=== PATIENT | female | born 1965 | race Hispanic/Latino ===

== ENCOUNTER 2018-08-03 20:49 | Emergency (ER) | payer SELFPAY ==
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
[2018-08-03 21:19] VITALS: BP 165/92; PULSE 69; RESP 22; TEMP 37; O2SAT 99; BMI 41.8
[2018-08-03] MEDS: ONDANSETRON 4 MG ODT PO (21:42)
[2018-08-03] MEDS: ACETAMINOPHEN 325 MG TABLET 650 MG PO (21:44)
[2018-08-03 22:10] VITALS: BP 144/74
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
[2018-08-03 22:18] VITALS: PULSE 74; RESP 18; TEMP 37.2; O2SAT 99
== END 2018-08-03 22:19 | disposition home or self-care (01) ==
PROVIDERS: Emergency Provider Emergency Medicine
DX: S13.9XXA Sprain of joints and ligaments of unspecified parts of neck, initial encounter (principal); V49.50XA Passenger injured in collision with unspecified motor vehicles in traffic accident, initial encounter
CPT/HCPCS: 71046; 99282; 99283

== ENCOUNTER 2018-11-15 14:28 | Emergency (ER) | payer OTHER, SELFPAY ==
[2018-11-15] VITALS (11 sets, daily range): BP systolic 114–150; BP diastolic 65–99; PULSE 72–91; RESP 14–24; TEMP 36.8; O2SAT 94–100; BMI 42.2
--- NOTE | 2018-11-15 15:09 | PC.NURSE ---
pt nepali, family at [employer] [facility], reports, right knee replacement a week ago, surg at [facility], pt developed left chest , radiating to the back, with shortness of breath, onset yesterday at 1pm. denies trauma,injuries. pain described as tightness and squeezing, denies fever,coughing. reports vomiting twice with brown secretions. also reports, no appetite.
--- NOTE | 2018-11-15 15:12 | ED.CHESTPAIN ---
HPI - Chest Pain <JULIA Abdul - Last Filed: 11/15/18 20:31> General Chief Complaint: Chest Pain Stated Complaint: Chest tightness, SOB Time Seen by Provider: 11/15/18 14:59 Source: patient Mode of arrival: wheelchair Limitations: language barrier History of Present Illness HPI narrative: 53-year-old female with recent history of meniscus clean of surgery to her right knee who is a nonsmoker here for complaint of chest pain radiating to the back pain and epigastric pain over the past couple of days. She denies any trauma to the area. She reports increased pain with movement of the torso and arms. She states she has had shortness of breath at times. She is able to speak full sentences. She denies any relievers of her symptoms other than being in certain positions. She reports that she has had periodic nausea and vomiting during the same timeframe. She reports that her vomit has had a bile like consistency to it. Last bowel movement was yesterday and was unremarkable. She denies any urinary symptoms. No fevers or chills. 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 Related Data Previous Rx's Medication Instructions Recorded lisinopril 10 mg PO QDAY #15 tab 07/26/17 ketorolac 10 mg PO Q6H PRN #14 tab 08/03/18 Allergies Allergy/AdvReac Type Severity Reaction Status Date / Time NARCOTICS AdvReac Unknown STATES CAN Uncoded 11/15/18 14:42 NOT TAKE Review of Systems <JULIA Abdul - Last Filed: 11/15/18 20:31> Constitutional Denies chills, Denies fatigue, Denies fever(s), Denies lethargy and Denies weakness Eyes Denies change in vision, Denies eye discharge, Denies irritation and Denies loss of vision ENT Ears, Nose, Mouth, and Throat: Denies change in voice, Denies neck pain and Denies sore throat Cardiovascular Reports chest pain, Denies dyspnea and Denies dyspnea on exertion Respiratory Denies cough, Denies dyspnea, Denies dyspnea on exertion and Denies wheezing Gastrointestinal Gastrointestinal: Reports abdominal pain, Denies change in bowel habits, Denies diarrhea, Denies nausea and Reports vomiting Genitourinary Denies hematuria, Denies flank pain, Denies urinary incontinence and Denies urinary urgency Musculoskeletal Denies neck pain Comments: Thoracic Back pain Integumentary/Breasts Denies pruritus, Denies erythema, Denies rash and Denies wounds Neurologic Denies confusion, Denies loss of vision and Denies weakness Psychiatric Denies anxiety, Denies confusion, Denies depression, Denies homicidal ideation and Denies suicidal ideation Endocrine Denies fatigue and Denies flushing Allergic/Immunologic Denies wheezing PFSH <JULIA Abdul - Last Filed: 11/15/18 20:31> Social History Smoking Status: Never smoker Social History Smoking Status: Never smoker Exam <JULIA Abdul - Last Filed: 11/15/18 20:31> Initial Vital Signs Initial Vital Signs: Vital Signs Temperature 98.3 F 11/15/18 14:33 Pulse Rate 84 11/15/18 14:33 Respiratory Rate 16 11/15/18 14:33 Blood Pressure 120/82 11/15/18 14:33 Pulse Oximetry 97 11/15/18 14:33 Const General: cooperative and well developed Nutritional Appearance: well nourished Orientation: alert, awake, oriented x3 and not confused [facility] Mouth: oral mucosae normal and moist mucous membranes Eyes Conjunctivae: conjunctivae normal Sclera: sclerae normal Pupils: PERRL EOM: EOM intact bilaterally Chest Chest: normal inspection of the chest Other: Tenderness on palpation to the sternal borders. No signs of trauma no ecchymosis. Resp Effort & Inspection: normal respiratory effort, able to speak in complete sentences, no respiratory distress and no use of accessory muscles Auscultation: clear to auscultation bilaterally, no rales, no rhonchi and no wheezes Cardio Rate: regular rate Rhythm: regular rhythm Heart Sounds: no click, no gallops, no murmurs and no rubs Pulses: normal peripheral pulses GI Inspection: non-distended Palpation: soft, no hepatosplenomegaly, No guarding, No pulsatile mass and tender (Tenderness to the epigastric region) Auscultation: normal bowel sounds Back/Spine/Pelvis Other: Tenderness on palpation to the paraspinals of the thoracic spine. Skin General: no rashes or lesions noted, No jaundice and No petechiae Neuro General: alert, oriented x3, gait normal and no focal motor deficits Speech: speech normal <Peter Stein DO - Last Filed: 11/16/18 00:22> Initial Vital Signs Initial Vital Signs: Vital Signs Temperature 98.3 F 11/15/18 14:33 Pulse Rate 84 11/15/18 14:33 Respiratory Rate 16 11/15/18 14:33 Blood Pressure 120/82 11/15/18 14:33 Pulse Oximetry 97 11/15/18 14:33 Scores <JULIA Abdul - Last Filed: 11/15/18 20:31> HEART Score Heart Score history: Slightly Suspicious Heart Score EKG: Normal Heart Score Age: 45-64 years old Heart Score risk factors: 1-2 risk factors Heart Score troponin: < or = to normal limit Heart Score Total: 2 PERC Score Age greater than or equal to 50 years: Yes Heart rate greater than or equal to 100 bpm: No Room Air O2 Sat less than 95%: No Unilateral leg swelling: No Recent trauma or surgery: Yes Hemoptysis: No Prior PE or DVT: No Hormone Use: No Total PERC Score: 2 Course <JULIA Abdul - Last Filed: 11/15/18 20:31> Orders Ordered: ED Orders 11/15/18 15:26 CT abdomen pelvis w con Stat CT angio chest PE protocol Stat 11/15/18 15:55 B Type Natriuretic Peptide Stat Complete Blood Count AUTO DIFF Stat Comprehensive Metabolic Panel Stat Lipase Stat Prothrombin Time INR Stat Troponin & CK Cardiac Panel Stat Discontinued Medications Heparin Sodium (Porcine) (Heparin) 5,000 unit IV NOW ONE Stop: 11/15/18 18:58 Last Admin: 11/15/18 19:34 Dose: Not Given Heparin Sodium (Porcine) (Heparin) 7,500 unit IV NOW ONE Stop: 11/15/18 19:31 Last Admin: 11/15/18 19:52 Dose: 7,500 unit Sodium Chloride (Normal Saline 0.9%) 1,000 mls @ 150 mls/hr IV CONT EVER Last Infusion: 11/15/18 18:45 Dose: 0 mls/hr Infusion: 11/15/18 16:09 Dose: 1,000 mls/hr Admin: 11/15/18 16:08 Dose: 150 mls/hr Heparin Sodium/Dextrose (Heparin Drip) 25,000 unit in 500 mls @ 22.752 mls/hr IV CONT EVER; Protocol Last Admin: 11/15/18 19:34 Dose: Not Given Heparin Sodium/Dextrose (Heparin Drip) 25,000 unit in 500 mls @ 24 mls/hr IV CONT EVER; Protocol Last Titration: 11/15/18 21:05 Dose: 0 units/hr, 0 mls/hr Admin: 11/15/18 19:52 Dose: 1,200 units/hr, 24 mls/hr Vital Signs - 8 hr 11/15/18 16:30 11/15/18 17:30 11/15/18 18:45 Pulse Rate 82 81 81 Respiratory Rate 21 22 19 Blood Pressure Blood Pressure [Right Arm] 129/74 130/65 129/87 Pulse Oximetry 94 98 97 11/15/18 20:01 11/15/18 20:10 11/15/18 20:41 Pulse Rate 91 H 85 Respiratory Rate 24 18 Blood Pressure Blood Pressure [Right Arm] 150/90 H 142/71 H Pulse Oximetry 97 100 11/15/18 21:19 Pulse Rate 78 Respiratory Rate 18 Blood Pressure 150/91 H Blood Pressure [Right Arm] Pulse Oximetry 98 <Peter Stein DO - Last Filed: 11/16/18 00:22> Orders Ordered: ED Orders 11/15/18 15:26 CT abdomen pelvis w con Stat CT angio chest PE protocol Stat 11/15/18 15:55 B Type Natriuretic Peptide Stat Complete Blood Count AUTO DIFF Stat Comprehensive Metabolic Panel Stat Lipase Stat Prothrombin Time INR Stat Troponin & CK Cardiac Panel Stat Discontinued Medications Heparin Sodium (Porcine) (Heparin) 5,000 unit IV NOW ONE Stop: 11/15/18 18:58 Last Admin: 11/15/18 19:34 Dose: Not Given Heparin Sodium (Porcine) (Heparin) 7,500 unit IV NOW ONE Stop: 11/15/18 19:31 Last Admin: 11/15/18 19:52 Dose: 7,500 unit Sodium Chloride (Normal Saline 0.9%) 1,000 mls @ 150 mls/hr IV CONT EVER Last Infusion: 11/15/18 18:45 Dose: 0 mls/hr Infusion: 11/15/18 16:09 Dose: 1,000 mls/hr Admin: 11/15/18 16:08 Dose: 150 mls/hr Heparin Sodium/Dextrose (Heparin Drip) 25,000 unit in 500 mls @ 22.752 mls/hr IV CONT EVER; Protocol Last Admin: 11/15/18 19:34 Dose: Not Given Heparin Sodium/Dextrose (Heparin Drip) 25,000 unit in 500 mls @ 24 mls/hr IV CONT EVER; Protocol Last Titration: 11/15/18 21:05 Dose: 0 units/hr, 0 mls/hr Admin: 11/15/18 19:52 Dose: 1,200 units/hr, 24 mls/hr Vital Signs - 8 hr 11/15/18 16:30 11/15/18 17:30 11/15/18 18:45 Pulse Rate 82 81 81 Respiratory Rate 21 22 19 Blood Pressure Blood Pressure [Right Arm] 129/74 130/65 129/87 Pulse Oximetry 94 98 97 11/15/18 20:01 11/15/18 20:10 11/15/18 20:41 Pulse Rate 91 H 85 Respiratory Rate 24 18 Blood Pressure Blood Pressure [Right Arm] 150/90 H 142/71 H Pulse Oximetry 97 100 11/15/18 21:19 Pulse Rate 78 Respiratory Rate 18 Blood Pressure 150/91 H Blood Pressure [Right Arm] Pulse Oximetry 98 MDM - Chest Pain <JULIA Abdul - Last Filed: 11/15/18 20:31> Lab Data Result diagrams: 11/15/18 15:55 11/15/18 15:55 Lab Results 11/15/18 11/15/18 11/15/18 Range/Units 15:55 15:55 15:55 WBC 8.3 (4.5-11.0) X10^3/uL RBC 4.61 (4.0-5.2) X10^6/uL Hgb 13.5 (12.0-16.0) g/dL Hct 40.5 (36-46) % MCV 88.0 (80-100) fL MCH 29.2 (26-34) PG MCHC 33.2 (30-36) % RDW 13.5 (11.6-14.8) % Plt Count 224 (150-400) X10^3/uL Neut % (Auto) 66.9 (50-75) % Lymph % (Auto) 23.1 L (25-40) % Sanders % (Auto) 6.7 (3-14) % Eos % (Auto) 2.6 (2-4) % Baso % (Auto) 0.7 (0-2) % Neut # (Auto) 5500 (8951-8138) /uL Lymph # (Auto) 1900 (6868-4914) /uL Sanders # (Auto) 600 (0-900) /uL Eos # (Auto) 200 (0-450) /uL Baso # (Auto) 100 (0-100) /uL PT (10.1-12.7) SECONDS INR (0.9-1.3) Sodium 138 (137-145) mmol/L Potassium 4.3 (3.4-5.1) mmol/L Chloride 103 (98-107) mmol/L Carbon Dioxide 26 (22-32) mmol/L BUN 11 (7-17) mg/dL Creatinine 0.60 (0.52-1.04) mg/dL Estimated GFR > 60.0 (>60) mL/min BUN/Creatinine Ratio 18.3 (6-22) Glucose 92 (70-100) mg/dL Calcium 9.2 (8.4-10.2) mg/dL Total Bilirubin 2.1 H (0.2-1.3) mg/dL AST 458 H (14-36) IU/L ALT 345 H (9-52) IU/L Alkaline Phosphatase 187 H (38-126) U/L Total Creatine Kinase 68 (30-135) U/L CK-MB (CK-2) TNP CK-MB (CK-2) Rel Index TNP Troponin I < 0.012 (0.01-0.034) ng/mL B-Natriuretic Peptide < 100 (<100) Total Protein 7.7 (6.3-8.2) g/dL Albumin 4.1 (3.5-5.0) g/dL Globulin 3.6 (1.7-4.1) g/dL Albumin/Globulin Ratio 1.1 (1.0-2.8) Lipase 93 (23-300) U/L 11/15/18 Range/Units 15:55 WBC (4.5-11.0) X10^3/uL RBC (4.0-5.2) X10^6/uL Hgb (12.0-16.0) g/dL Hct (36-46) % MCV (80-100) fL MCH (26-34) PG MCHC (30-36) % RDW (11.6-14.8) % Plt Count (150-400) X10^3/uL Neut % (Auto) (50-75) % Lymph % (Auto) (25-40) % Sanders % (Auto) (3-14) % Eos % (Auto) (2-4) % Baso % (Auto) (0-2) % Neut # (Auto) (9836-0815) /uL Lymph # (Auto) (7120-0830) /uL Sanders # (Auto) (0-900) /uL Eos # (Auto) (0-450) /uL Baso # (Auto) (0-100) /uL PT 11.0 (10.1-12.7) SECONDS INR 1.0 (0.9-1.3) Sodium (137-145) mmol/L Potassium (3.4-5.1) mmol/L Chloride (98-107) mmol/L Carbon Dioxide (22-32) mmol/L BUN (7-17) mg/dL Creatinine (0.52-1.04) mg/dL Estimated GFR (>60) mL/min BUN/Creatinine Ratio (6-22) Glucose (70-100) mg/dL Calcium (8.4-10.2) mg/dL Total Bilirubin (0.2-1.3) mg/dL AST (14-36) IU/L ALT (9-52) IU/L Alkaline Phosphatase (38-126) U/L Total Creatine Kinase (30-135) U/L CK-MB (CK-2) CK-MB (CK-2) Rel Index Troponin I (0.01-0.034) ng/mL B-Natriuretic Peptide (<100) Total Protein (6.3-8.2) g/dL Albumin (3.5-5.0) g/dL Globulin (1.7-4.1) g/dL Albumin/Globulin Ratio (1.0-2.8) Lipase (23-300) U/L Imaging Data CT scan - abdomen: Radiologist's impression: [address] [address] [address] Scan Report Signed Patient: Lilia Rehman#: [id number] : 1965Acct:[id number] Age/Sex: 53 / FDate of Service: 11/15/18 Loc: ED Accession Number: [id number] Procedure: CT abdomen pelvis w con Ordering Provider: Jama Clement PROCEDURE: CT ABDOMEN PELVIS W CON INDICATIONS: Epigastric/right upper quadrant pain TECHNIQUE: After the administration of intravenous contrast, 5 mm thick sections acquired from the diaphragm to the symphysis. 5 mm coronal and sagittal reformats were acquired. For radiation dose reduction, the following was used: automated exposure control, adjustment of mA and/or kV according to patient size. COMPARISON: [facility], CT, CT KUB, 10/04/2018, 19:10. [facility], CT, CT CERVICAL SPINE WITHOUT CONTRAST, 08/08/2018, 22:24. [facility], CT, CT HEAD WITHOUT CONTRAST, 04/08/2018, 17:17. [facility], CT, CT ANGIO CHEST PE, 05/28/2017, 20:35. FINDINGS: Image quality: Excellent. ABDOMEN: Lower chest: Please see separately dictated CT report performed concurrently for chest findings. Solid organs: Liver is normal in size and enhancement. Gallbladder demonstrate cholelithiasis. Common bile duct measures minimally dilated. Pancreas enhances normally. Spleen is normal in size and enhancement. No hydronephrosis. Bilateral left greater than right parapelvic cysts. Redemonstration of the previously noted left adrenal soft tissue mass containing heterogeneous fat in the posterior left upper quadrant of the abdomen measuring 9.1 x 5.4 x 8.3 cm, previously measuring 8.9 x 5.6 x 7.7 cm on comparison exam of 05/28/17 (within the limits of measurement error). Peritoneum and bowel: Bowel loops demonstrate normal wall thickness and caliber. No free fluid or air. There is scattered colonic diverticulosis without evidence of acute diverticulitis. Nodes and vessels: No retroperitoneal or mesenteric adenopathy by size criteria. Aorta and inferior vena cava are normal in size. Miscellaneous: 2.0 cm fat-containing umbilical hernia. PELVIS: Genitourinary: Bladder wall thickness is normal. Miscellaneous: No inguinal hernias or adenopathy. Bones: No suspicious bony lesions. No vertebral body compression fractures. Although there are changes of the thoracic spine with flowing anterior osteophytes consistent with diffuse idiopathic skeletal hyperostosis. IMPRESSION: 1. Cholelithiasis with minimal dilatation of the common bile duct. No convincing choledocholithiasis identified. No CT findings of acute cholecystitis. 2. 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 Recommend followup adrenal protocol CT of the abdomen and pelvis in 6 months to demonstrate stability. 3. Please see separately dictated PE CTA report performed concurrently for findings within the chest. Dictated by: Pola Monge M.D. on 11/15/2018 at 18:55 Approved by: Pola Monge M.D. on 11/15/2018 at 19:06 CT scan - chest: Radiologist's impression: [place] [address] CT Scan Report Signed Patient: Lilia Rehman#: [id number] : 1965Acct:[id number] Age/Sex: 53 / FDate of Service: 11/15/18 Loc: ED Accession Number: [id number] Procedure: CT abdomen pelvis w con Ordering Provider: Jama Clement PROCEDURE: CT ABDOMEN PELVIS W CON INDICATIONS: Epigastric/right upper quadrant pain TECHNIQUE: After the administration of intravenous contrast, 5 mm thick sections acquired from the diaphragm to the symphysis. 5 mm coronal and sagittal reformats were acquired. For radiation dose reduction, the following was used: automated exposure control, adjustment of mA and/or kV according to patient size. COMPARISON: [facility], CT, CT KUB, 10/04/2018, 19:10. [facility], CT, CT CERVICAL SPINE WITHOUT CONTRAST, 08/08/2018, 22:24. [facility], CT, CT HEAD WITHOUT CONTRAST, 04/08/2018, 17:17. [facility], CT, CT ANGIO CHEST PE, 05/28/2017, 20:35. FINDINGS: Image quality: Excellent. ABDOMEN: Lower chest: Please see separately dictated CT report performed concurrently for chest findings. Solid organs: Liver is normal in size and enhancement. Gallbladder demonstrate cholelithiasis. Common bile duct measures minimally dilated. Pancreas enhances normally. Spleen is normal in size and enhancement. No hydronephrosis. Bilateral left greater than right parapelvic cysts. Redemonstration of the previously noted left adrenal soft tissue mass containing heterogeneous fat in the posterior left upper quadrant of the abdomen measuring 9.1 x 5.4 x 8.3 cm, previously measuring 8.9 x 5.6 x 7.7 cm on comparison exam of 05/28/17 (within the limits of measurement error). Peritoneum and bowel: Bowel loops demonstrate normal wall thickness and caliber. No free fluid or air. There is scattered colonic diverticulosis without evidence of acute diverticulitis. Nodes and vessels: No retroperitoneal or mesenteric adenopathy by size criteria. Aorta and inferior vena cava are normal in size. Miscellaneous: 2.0 cm fat-containing umbilical hernia. PELVIS: Genitourinary: Bladder wall thickness is normal. Miscellaneous: No inguinal hernias or adenopathy. Bones: No suspicious bony lesions. No vertebral body compression fractures. Although there are changes of the thoracic spine with flowing anterior osteophytes consistent with diffuse idiopathic skeletal hyperostosis. IMPRESSION: 1. Cholelithiasis with minimal dilatation of the common bile duct. No convincing choledocholithiasis identified. No CT findings of acute cholecystitis. 2. 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 Recommend followup adrenal protocol CT of the abdomen and pelvis in 6 months to demonstrate stability. 3. Please see separately dictated PE CTA report performed concurrently for findings within the chest. Dictated by: Pola Monge M.D. on 11/15/2018 at 18:55 Approved by: Pola Monge M.D. on 11/15/2018 at 19:06 ECG Data Interpretation: EKG shows normal sinus rhythm with no ST elevation or depression. No ectopy. Ventricular rate of 79. Pr interval 147. QRS duration 91. QTC of 435. S1 q3 T3 negative MDM Narrative Medical decision making narrative: CT scan of the chest was obtained and shows a pulmonary embolus to the right main pulmonary artery extending into the lobar arteries of the anterior right upper lobe right middle lobe and right lower lobe. Cardiac enzymes were obtained were upper were normal. BMP was normal. was obtained and was unremarkable. Chem panel was obtained elevated AST ALT and alk phos along with elevated total bili of 2.1. INR was obtained was unremarkable. CT of the abdomen was also obtained and shows cholelithiasis no cholecystitis and no dilation of the common bile duct. Unknown etiology at this point why she has elevated liver enzymes and a elevated bilirubin. Recommend further evaluation after stabilization of pulmonary embolus. She is transferred to [facility]. Discussed case with hospitalist Dr. Pacheco who accepted patient. Patient's vital signs were stable in the emergency room with the exception of pulse ox which lowered to around 80% and she was given 3 L nasal cannula which helped bring back to normal. Patient is transferred to the [facility] via ALS. Heparin bolus and heparin starting drip was initiated here in the emergency room. <Peter Stein, DO - Last Filed: 11/16/18 00:22> Lab Data Lab Results 11/15/18 11/15/18 11/15/18 Range/Units 15:55 15:55 15:55 WBC 8.3 (4.5-11.0) X10^3/uL RBC 4.61 (4.0-5.2) X10^6/uL Hgb 13.5 (12.0-16.0) g/dL Hct 40.5 (36-46) % MCV 88.0 (80-100) fL MCH 29.2 (26-34) PG MCHC 33.2 (30-36) % RDW 13.5 (11.6-14.8) % Plt Count 224 (150-400) X10^3/uL Neut % (Auto) 66.9 (50-75) % Lymph % (Auto) 23.1 L (25-40) % Sanders % (Auto) 6.7 (3-14) % Eos % (Auto) 2.6 (2-4) % Baso % (Auto) 0.7 (0-2) % Neut # (Auto) 5500 (5999-9105) /uL Lymph # (Auto) 1900 (9222-2079) /uL Sanders # (Auto) 600 (0-900) /uL Eos # (Auto) 200 (0-450) /uL Baso # (Auto) 100 (0-100) /uL PT (10.1-12.7) SECONDS INR (0.9-1.3) Sodium 138 (137-145) mmol/L Potassium 4.3 (3.4-5.1) mmol/L Chloride 103 (98-107) mmol/L Carbon Dioxide 26 (22-32) mmol/L BUN 11 (7-17) mg/dL Creatinine 0.60 (0.52-1.04) mg/dL Estimated GFR > 60.0 (>60) mL/min BUN/Creatinine Ratio 18.3 (6-22) Glucose 92 (70-100) mg/dL Calcium 9.2 (8.4-10.2) mg/dL Total Bilirubin 2.1 H (0.2-1.3) mg/dL AST 458 H (14-36) IU/L ALT 345 H (9-52) IU/L Alkaline Phosphatase 187 H (38-126) U/L Total Creatine Kinase 68 (30-135) U/L CK-MB (CK-2) TNP CK-MB (CK-2) Rel Index TNP Troponin I < 0.012 (0.01-0.034) ng/mL B-Natriuretic Peptide < 100 (<100) Total Protein 7.7 (6.3-8.2) g/dL Albumin 4.1 (3.5-5.0) g/dL Globulin 3.6 (1.7-4.1) g/dL Albumin/Globulin Ratio 1.1 (1.0-2.8) Lipase 93 (23-300) U/L 11/15/18 Range/Units 15:55 WBC (4.5-11.0) X10^3/uL RBC (4.0-5.2) X10^6/uL Hgb (12.0-16.0) g/dL Hct (36-46) % MCV (80-100) fL MCH (26-34) PG MCHC (30-36) % RDW (11.6-14.8) % Plt Count (150-400) X10^3/uL Neut % (Auto) (50-75) % Lymph % (Auto) (25-40) % Sanders % (Auto) (3-14) % Eos % (Auto) (2-4) % Baso % (Auto) (0-2) % Neut # (Auto) (8868-2204) /uL Lymph # (Auto) (1108-7567) /uL Sanders # (Auto) (0-900) /uL Eos # (Auto) (0-450) /uL Baso # (Auto) (0-100) /uL PT 11.0 (10.1-12.7) SECONDS INR 1.0 (0.9-1.3) Sodium (137-145) mmol/L Potassium (3.4-5.1) mmol/L Chloride (98-107) mmol/L Carbon Dioxide (22-32) mmol/L BUN (7-17) mg/dL Creatinine (0.52-1.04) mg/dL Estimated GFR (>60) mL/min BUN/Creatinine Ratio (6-22) Glucose (70-100) mg/dL Calcium (8.4-10.2) mg/dL Total Bilirubin (0.2-1.3) mg/dL AST (14-36) IU/L ALT (9-52) IU/L Alkaline Phosphatase (38-126) U/L Total Creatine Kinase (30-135) U/L CK-MB (CK-2) CK-MB (CK-2) Rel Index Troponin I (0.01-0.034) ng/mL B-Natriuretic Peptide (<100) Total Protein (6.3-8.2) g/dL Albumin (3.5-5.0) g/dL Globulin (1.7-4.1) g/dL Albumin/Globulin Ratio (1.0-2.8) Lipase (23-300) U/L Discharge Plan Departure Patient Disposition: [facility] Clinical Impression: Pulmonary embolism Qualifiers: Pulmonary embolism type: unspecified Chronicity: acute Acute cor pulmonale presence: without acute cor pulmonale Qualified Code(s): I26.99 - Other pulmonary embolism without acute cor pulmonale Discharge Date/Time: 11/15/18 21:10 Interventions: ED Discharge Assessment Last Done: 11/15/18 21:19 Prescriptions: No Action lisinopril 10 MG tablet 10 mg PO QDAY Qty: 15 RF: 0 ketorolac 10 mg tablet 10 mg PO Q6H PRN (Reason: pain) Qty: 14 RF: 0 <Peter Stein DO - Last Filed: 11/16/18 00:22> Cosign ED Attending Cosignature Attestation: I was immediately available in the department for consultation. Documentation has been reviewed. I agree with assessment and plan.
--- NOTE | 2018-11-15 15:26 | DI.CT.S_ITS ---
PROCEDURE: CT ANGIO CHEST PE PROTOCOL INDICATIONS: Chest pain radiating to back TECHNIQUE: After the administration of intravenous contrast, 2 mm thick sections acquired from the pulmonary apices to the posterior costophrenic angles. 3-dimensional maximum intensity projection (MIP) coronal and sagittal reformats were then acquired through the thorax. For radiation dose reduction, the following was used: automated exposure control, adjustment of mA and/or kV according to patient size. COMPARISON: [facility], CT, CT KUB, 10/04/2018, 19:10. [facility], CT, CT CERVICAL SPINE WITHOUT CONTRAST, 08/08/2018, 22:24. [facility], CT, CT HEAD WITHOUT CONTRAST, 04/08/2018, 17:17. [facility], CT, CT ANGIO CHEST PE, 05/28/2017, 20:35. FINDINGS: Image quality: Excellent. Pulmonary arteries: There are filling defects consistent with pulmonary emboli in the right main pulmonary artery extending into the lobar arteries of the anterior right upper lobe, right middle lobe, and right lower lobe. There is no significant dilatation of the main pulmonary arteries or right ventricular outflow tract. There is no right to left shift of the ventricular septum. Smaller segmental emboli are noted distal to these emboli. Lungs and pleura: Lungs are clear. No pleural effusions or pneumothorax. Central and peripheral airways are patent. Mediastinum: Heart size is normal, without pericardial effusion. No mediastinal or hilar adenopathy. Thoracic aorta is normal in caliber and enhancement. Esophagus is normal in caliber, without hiatal hernia. Bones and chest wall: Moderate multilevel degenerative changes of the thoracic spine. Multilevel flowing anterior osteophytes suggestive of diffuse idiopathic skeletal hyperostosis. Abdomen: Please see separately dictated report for separately performed CT of the abdomen performed concurrently. IMPRESSION: 1. Pulmonary emboli extending from the right main pulmonary artery into the lobar arteries of the right upper, right middle, and right lower lobes. Smaller segmental emboli are noted distally. 2. Please see separately dictated report for separately performed CT of the abdomen performed concurrently for abdominal findings. Findings discussed with the referring provider JULIA Clement by telephone by Dr. Monge at approximately 6:55 PM on 11/15/2018. Dictated by: Pola Monge M.D. on 11/15/2018 at 18:44 Approved by: Pola Monge M.D. on 11/15/2018 at 18:55
--- NOTE | 2018-11-15 15:26 | DI.CT.S_ITS ---
PROCEDURE: CT ABDOMEN PELVIS W CON INDICATIONS: Epigastric/right upper quadrant pain TECHNIQUE: After the administration of intravenous contrast, 5 mm thick sections acquired from the diaphragm to the symphysis. 5 mm coronal and sagittal reformats were acquired. For radiation dose reduction, the following was used: automated exposure control, adjustment of mA and/or kV according to patient size. COMPARISON: [facility], CT, CT KUB, 10/04/2018, 19:10. [facility], CT, CT CERVICAL SPINE WITHOUT CONTRAST, 08/08/2018, 22:24. [facility], CT, CT HEAD WITHOUT CONTRAST, 04/08/2018, 17:17. [facility], CT, CT ANGIO CHEST PE, 05/28/2017, 20:35. FINDINGS: Image quality: Excellent. ABDOMEN: Lower chest: Please see separately dictated CT report performed concurrently for chest findings. Solid organs: Liver is normal in size and enhancement. Gallbladder demonstrate cholelithiasis. Common bile duct measures minimally dilated. Pancreas enhances normally. Spleen is normal in size and enhancement. No hydronephrosis. Bilateral left greater than right parapelvic cysts. Redemonstration of the previously noted left adrenal soft tissue mass containing heterogeneous fat in the posterior left upper quadrant of the abdomen measuring 9.1 x 5.4 x 8.3 cm, previously measuring 8.9 x 5.6 x 7.7 cm on comparison exam of 05/28/17 (within the limits of measurement error). Peritoneum and bowel: Bowel loops demonstrate normal wall thickness and caliber. No free fluid or air. There is scattered colonic diverticulosis without evidence of acute diverticulitis. Nodes and vessels: No retroperitoneal or mesenteric adenopathy by size criteria. Aorta and inferior vena cava are normal in size. Miscellaneous: 2.0 cm fat-containing umbilical hernia. PELVIS: Genitourinary: Bladder wall thickness is normal. Miscellaneous: No inguinal hernias or adenopathy. Bones: No suspicious bony lesions. No vertebral body compression fractures. Although there are changes of the thoracic spine with flowing anterior osteophytes consistent with diffuse idiopathic skeletal hyperostosis. IMPRESSION: 1. Cholelithiasis with minimal dilatation of the common bile duct. No convincing choledocholithiasis identified. No CT findings of acute cholecystitis. 2. 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 Recommend followup adrenal protocol CT of the abdomen and pelvis in 6 months to demonstrate stability. 3. Please see separately dictated PE CTA report performed concurrently for findings within the chest. Dictated by: Pola Monge M.D. on 11/15/2018 at 18:55 Approved by: Pola Monge M.D. on 11/15/2018 at 19:06
[2018-11-15] MEDS: SODIUM CHLORIDE 0.9% 1,000 ML 150 ML IV (16:08)
[2018-11-15 16:12] LABS: Add Manual Diff / Slide Review NO; Basophils Absolute Auto 100 /uL (0-100); Basophils Percent Auto 0.7 % (0-2); Eosinophils Absolute Auto 200 /uL (0-450); Eosinophils Percent Auto 2.6 % (2-4); Hematocrit 40.5 % (36-46); Hemoglobin 13.5 g/dL (12.0-16.0); Lymphocytes Absolute Auto 1900 /uL (1100-4500); Lymphocytes Percent Auto 23.1 % (25-40); Mean Corpuscular HGB Conc 33.2 % (30-36); Mean Corpuscular Hemoglobin 29.2 PG (26-34); Monocytes Absolute Auto 600 /uL (0-900); Monocytes Percent Auto 6.7 % (3-14); Neutrophils Absolute Auto 5500 /uL (1500-7000); Neutrophils Percent Auto 66.9 % (50-75); Platelet Count 224 X10^3/uL (150-400); Red Blood Cell Count 4.61 X10^6/uL (4.0-5.2); Red Cell Distribution Width 13.5 % (11.6-14.8); White Blood Cell Count 8.3 X10^3/uL (4.5-11.0)
[2018-11-15 16:29] LABS: Alanine Aminotransferase 345 IU/L (9-52); Albumin 4.1 g/dL (3.5-5.0); Albumin Globulin Ratio 1.1 (1.0-2.8); Alkaline Phosphatase 187 U/L (38-126); Aspartate Aminotransferase 458 IU/L (14-36); BUN Creatinine Ratio 18.3 (6-22); Bilirubin Total 2.1 mg/dL (0.2-1.3); Blood Urea Nitrogen 11 mg/dL (7-17); Calcium 9.2 mg/dL (8.4-10.2); Carbon Dioxide 26 mmol/L (22-32); Chloride 103 mmol/L (98-107); Creatine Kinase 68 U/L (30-135); Estimated Glomerular Filt Rate > 60.0 mL/min (>60); Globulin 3.6 g/dL (1.7-4.1); Glucose 92 mg/dL (70-100); HEMOLYSIS < 15 (0-50); Lipase 93 U/L (23-300); Potassium 4.3 mmol/L (3.4-5.1); Sodium 138 mmol/L (137-145); Total Protein 7.7 g/dL (6.3-8.2)
[2018-11-15 16:39] LABS: Troponin I < 0.012 ng/mL (0.01-0.034)
--- NOTE | 2018-11-15 17:19 | PC.NURSE ---
right knee dressing sliding down, right knee with 2 incision site with drain intact, clean dry, no redness/warmth/swelling/bruising noted. new 4x4 with abdominal pads applied along with angy wrap. post application, +distal cms. tolerated procedure well. lower extremities levated with pillow, warm blanket provided, family at bs.
[2018-11-15 19:25] LABS: B Type Natriuretic Peptide < 100 (<100)
[2018-11-15] MEDS: HEPARIN DRIP 25,000 UNIT/500 ML IV.SOLN 24 UNIT IV (19:52)
[2018-11-15] MEDS: HEPARIN 5,000 UNIT/ML VIAL 7500 UNIT IV (19:52)
--- NOTE | 2018-11-15 19:57 | PC.NURSE ---
heparin doseages verified with kelsi gill per policy in policy tech. IV pump rate and bolus verified with jyotsna love
--- NOTE | 2018-11-15 19:59 | PC.NURSE ---
second line started due to heparin infustion in left forearm iv
--- NOTE | 2018-11-15 20:00 | PC.NURSE ---
pt placed on nasal cannula at 3L to maintain sats at or above 96. Provider notified and went directly to room.
--- NOTE | 2018-11-15 21:19 | PC.NURSE ---
heparin to infuse in transport
== END 2018-11-15 21:10 | disposition short-term general hospital (02) ==
PROVIDERS: Emergency Medicine; Emergency Provider Nurse Practitioner Family
DX: I26.99 Other pulmonary embolism without acute cor pulmonale (principal)
CPT/HCPCS: 36591; 71275; 74177; 80053; 82550; 83690; 83880; 84484; 85025; 85610; 93005; 93010; 96361; 96365; 99285; J1644; Q9967

== ENCOUNTER 2018-11-20 21:27 | Emergency (ER) | payer OTHER, SELFPAY ==
[2018-11-20 21:45] VITALS: BP 147/84; PULSE 71; RESP 18; TEMP 36.6; O2SAT 97
--- NOTE | 2018-11-20 22:04 | DI.RAD.S_ITS ---
PROCEDURE: XR CHEST 1V INDICATIONS: dyspnea TECHNIQUE: One view of the chest was acquired. COMPARISON: [facility], CR, XR CHEST 2V, 08/03/2018, 21:27. FINDINGS: Surgical changes and devices: None. Lungs and pleura: Slightly increased pulmonary vascularity. Lungs are otherwise clear. No pleural effusions or pneumothorax. Mediastinum: Mediastinal contours appear normal. Heart size is mildly increased. Bones and chest wall: No suspicious bony lesions. Overlying soft tissues appear unremarkable. IMPRESSION: Mild cardiomegaly and slightly increased pulmonary vascularity suggesting mild pulmonary congestion. No overt pulmonary edema. Dictated by: Dhruv Reeder M.D. on 11/21/2018 at 8:32 Approved by: Dhruv Reeder M.D. on 11/21/2018 at 8:34
[2018-11-20 22:10] LABS: Add Manual Diff / Slide Review NO; Basophils Absolute Auto 100 /uL (0-100); Basophils Percent Auto 0.6 % (0-2); Eosinophils Absolute Auto 300 /uL (0-450); Eosinophils Percent Auto 2.9 % (2-4); Hematocrit 39.4 % (36-46); Hemoglobin 13.3 g/dL (12.0-16.0); Lymphocytes Absolute Auto 2500 /uL (1100-4500); Lymphocytes Percent Auto 27.2 % (25-40); Mean Corpuscular HGB Conc 33.6 % (30-36); Mean Corpuscular Hemoglobin 29.4 PG (26-34); Mean Corpuscular Volume 87.5 fL (80-100); Monocytes Absolute Auto 400 /uL (0-900); Monocytes Percent Auto 4.5 % (3-14); Neutrophils Absolute Auto 5900 /uL (1500-7000); Neutrophils Percent Auto 64.8 % (50-75); Platelet Count 235 X10^3/uL (150-400); Red Blood Cell Count 4.51 X10^6/uL (4.0-5.2); Red Cell Distribution Width 13.3 % (11.6-14.8); White Blood Cell Count 9.1 X10^3/uL (4.5-11.0)
[2018-11-20] MEDS: KETOROLAC 60 MG/2 ML VIAL 15 MG IV (22:13)
[2018-11-20] MEDS: LORazepam 2 MG/ML SYRINGE 1 MG IV (22:14)
[2018-11-20] MEDS: SODIUM CHLORIDE 0.9% 1,000 ML 1000 ML IV (22:15)
[2018-11-20 22:18] LABS: INR 1.2 (0.9-1.3); Prothrombin Time 14.1 SECONDS (10.1-12.7)
[2018-11-20 22:24] LABS: Alanine Aminotransferase 96 IU/L (9-52); Albumin 4.2 g/dL (3.5-5.0); Albumin Globulin Ratio 1.2 (1.0-2.8); Alkaline Phosphatase 114 U/L (38-126); Aspartate Aminotransferase 43 IU/L (14-36); Bilirubin Total 0.5 mg/dL (0.2-1.3); Blood Urea Nitrogen 14 mg/dL (7-17); Calcium 9.4 mg/dL (8.4-10.2); Carbon Dioxide 27 mmol/L (22-32); Chloride 103 mmol/L (98-107); Estimated Glomerular Filt Rate > 60.0 mL/min (>60); Globulin 3.5 g/dL (1.7-4.1); Glucose 118 mg/dL (70-100); HEMOLYSIS 20 (0-50); Potassium 3.8 mmol/L (3.4-5.1); Sodium 139 mmol/L (137-145); Total Protein 7.7 g/dL (6.3-8.2)
--- NOTE | 2018-11-20 22:34 | ED_ITS ---
HPI - SOB/Dyspnea General Chief Complaint: Shortness of Breath/Dyspnea Stated Complaint: PAIN, HX RECENT BLOOD CLOTS Time Seen by Provider: 11/20/18 21:52 Source: patient and family Mode of arrival: ambulatory Limitations: no limitations History of Present Illness Patient comes to the emergency department with her family complaining of pain with deep breaths, anxiety and shortness of breath. Patient was diagnosed with pulmonary emboli about 5 days ago, and was admitted at [facility] in [place] for several days. Patient has been on oral anticoagulants since. She has not had any fevers, and denies lightheadedness or dizziness. No cough. She states that she is having pain in her back that is the same as the pain in the side and front. Pain is mainly located on the left. Patient has no cardiac history. Family states the patient is not on Coumadin, but they think she is on Pradaxa. Related Data Previous Rx's Medication Instructions Recorded lisinopril 10 mg PO QDAY #15 tab 07/26/17 ketorolac 10 mg PO Q6H PRN #14 tab 08/03/18 Allergies Allergy/AdvReac Type Severity Reaction Status Date / Time narcotic Allergy Uncoded 11/20/18 21:52 Review of Systems Constitutional Denies chills, Denies fever(s), Denies lethargy and Denies weakness Eyes Denies change in vision, Denies eye discharge, Denies irritation and Denies loss of vision ENT Ears, Nose, Mouth, and Throat: Denies change in voice, Denies neck pain and Denies sore throat Cardiovascular Reports chest pain, Denies irregular heart rhythm, Denies lightheadedness, Denies palpitations, Reports dyspnea ( Patient states mainly because it hurts to take a deep breath.) and Denies orthopnea Respiratory Denies cough, Reports dyspnea ( Patient states mainly because it hurts to take a deep breath.) and Denies wheezing Gastrointestinal Gastrointestinal: Denies abdominal pain, Denies change in bowel habits, Denies diarrhea, Denies nausea and Denies vomiting Genitourinary Denies hematuria, Denies flank pain, Denies urinary incontinence and Denies urinary urgency Musculoskeletal Denies neck pain Integumentary/Breasts Denies pruritus, Denies erythema, Denies rash and Denies wounds Neurologic Denies confusion, Denies loss of vision and Denies weakness Psychiatric Denies anxiety, Denies confusion, Denies depression, Denies homicidal ideation and Denies suicidal ideation Endocrine Denies palpitations Hematologic/Lymphatic Denies easy bruising Allergic/Immunologic Denies wheezing [facility] Medical History Pulmonary embolism (Acute) Anxiety (Acute) Acute labyrinthitis (Acute) Right sided sciatica (Acute) Surgical History No pertinent past surgical history (Acute) Social History Smoking Status: Never smoker Social History Smoking Status: Never smoker Exam Initial Vital Signs Initial Vital Signs: Vital Signs Temperature 97.8 F 11/20/18 21:45 Pulse Rate 71 11/20/18 21:45 Respiratory Rate 18 11/20/18 21:45 Blood Pressure 147/84 H 11/20/18 21:45 Pulse Oximetry 97 11/20/18 21:45 Const General: cooperative, well developed and anxious Nutritional Appearance: well nourished Orientation: alert, awake, oriented x3 and not confused HENMT Head: normocephalic and atraumatic Ears: external ears normal and TM's normal bilaterally Nose: external nose normal and No nasal discharge Face and sinus: sinuses nontender, face symmetric, no sinus tenderness and No dry mucous membranes Mouth: oral mucosae normal and moist mucous membranes Teeth and gingiva: dentition normal Throat: tonsils normal and uvula midline Eyes General: appearance normal, both eyes and all related structures Eyelids: eyelids normal Conjunctivae: conjunctivae normal Sclera: sclerae normal Pupils: PERRL EOM: EOM intact bilaterally Neck Neck: normal visual inspection, trachea midline, No lymphadenopathy, No midline deformity and No JVD Lymphatic: No lymphedema Chest Chest: normal inspection of the chest Other: Patient has tenderness over her left anterior and lateral chest wall. Resp Effort & Inspection: normal respiratory effort, able to speak in complete sentences, no respiratory distress and no use of accessory muscles Auscultation: clear to auscultation bilaterally, no rales, no rhonchi and no wheezes Cardio Rate: regular rate Rhythm: regular rhythm Heart Sounds: no click, no gallops, no murmurs and no rubs Pulses: normal peripheral pulses Other: No tachycardia. GI Inspection: non-distended Palpation: soft, no hepatosplenomegaly, No guarding, No pulsatile mass and No tender Auscultation: normal bowel sounds Back/Spine/Pelvis Back: No CVA tenderness Cervical Spine: cervical ROM normal and No pain with cervical ROM Thoracic/Lumbar Spine: thoracic and lumbar spine normal to inspection Skin General: no rashes or lesions noted, No jaundice and No petechiae Neuro General: alert, oriented x3, gait normal and no focal motor deficits Speech: speech normal Extrem General: full ROM, no clubbing, cyanosis or edema, no pedal edema and no calf tenderness Psych Appearance: well kempt Mental Status: mental status grossly normal Attitude: cooperative Thought Content: normal and suicidality Judgment: judgment good Course Course Narrative: The patient appeared anxious, but she had normal heart rate, blood pressure, and oxygen saturation. Additionally, she had tenderness over her left lateral and anterior chest wall, as well as over her left trapezius distribution. Furthermore, she had complained of worsening pain in those areas with deep breaths, and I suspected most likely a chest wall source of her pain as opposed to an increase in her pulmonary embolus burden. She was treated symptomatically and felt much better. She was on appropriate therapy for her emboli, and as such, I did not feel that repeat CT was indicated. Patient's labs and chest x-ray were unremarkable. Patient was found to be feeling much better on re-evaluation, and I felt she was stable for discharge home. Orders Ordered: Discontinued Medications Heparin Sodium (Porcine) (Heparin) 7,600 unit 80 unit/kg (7600 unit) IV NOW ONE Stop: 11/20/18 22:02 Last Admin: 11/20/18 22:53 Dose: Not Given Heparin Sodium/Dextrose (Heparin Drip) 25,000 unit in 500 mls @ 34.128 mls/hr IV CONT EVER; Protocol Sodium Chloride (Normal Saline 0.9%) 1,000 mls @ 1,000 mls/hr IV BOLUS ONE Stop: 11/20/18 23:02 Last Infusion: 11/20/18 23:50 Dose: 0 mls/hr Admin: 11/20/18 22:15 Dose: 1,000 mls/hr Ketorolac Tromethamine (Toradol) 15 mg IV NOW ONE Stop: 11/20/18 22:04 Last Admin: 11/20/18 22:13 Dose: 15 mg Lorazepam (Ativan) 1 mg IV NOW ONE Stop: 11/20/18 22:04 Last Admin: 11/20/18 22:14 Dose: 1 mg Vital Signs - 8 hr 11/20/18 21:45 11/20/18 22:45 11/20/18 22:48 Temperature 97.8 F 97.8 F Pulse Rate 71 71 74 Respiratory Rate 18 18 22 Blood Pressure 147/84 H 147/84 H Blood Pressure [Right Arm] 126/67 Pulse Oximetry 97 97 99 11/20/18 23:30 11/21/18 00:00 11/21/18 00:30 Temperature Pulse Rate 77 78 77 Respiratory Rate 20 25 H 17 Blood Pressure Blood Pressure [Right Arm] 134/69 135/79 132/81 Pulse Oximetry 99 96 98 MDM - SOB/Dyspnea Medical Records Attestation: I reviewed the patient's medical records. Lab Data Attestation: I reviewed the patient's lab results. Result diagrams: 11/20/18 21:50 11/20/18 21:50 Lab Results 11/20/18 11/20/18 11/20/18 Range/Units 21:50 21:50 21:50 WBC 9.1 (4.5-11.0) X10^3/uL RBC 4.51 (4.0-5.2) X10^6/uL Hgb 13.3 (12.0-16.0) g/dL Hct 39.4 (36-46) % MCV 87.5 (80-100) fL MCH 29.4 (26-34) PG MCHC 33.6 (30-36) % RDW 13.3 (11.6-14.8) % Plt Count 235 (150-400) X10^3/uL Neut % (Auto) 64.8 (50-75) % Lymph % (Auto) 27.2 (25-40) % Hardin % (Auto) 4.5 (3-14) % Eos % (Auto) 2.9 (2-4) % Baso % (Auto) 0.6 (0-2) % Neut # (Auto) 5900 (3465-0721) /uL Lymph # (Auto) 2500 (3654-4331) /uL Hardin # (Auto) 400 (0-900) /uL Eos # (Auto) 300 (0-450) /uL Baso # (Auto) 100 (0-100) /uL PT 14.1 H (10.1-12.7) SECONDS INR 1.2 (0.9-1.3) Sodium 139 (137-145) mmol/L Potassium 3.8 (3.4-5.1) mmol/L Chloride 103 (98-107) mmol/L Carbon Dioxide 27 (22-32) mmol/L BUN 14 (7-17) mg/dL Creatinine 0.50 L (0.52-1.04) mg/dL Estimated GFR > 60.0 (>60) mL/min BUN/Creatinine Ratio 28.0 H (6-22) Glucose 118 H (70-100) mg/dL Calcium 9.4 (8.4-10.2) mg/dL Total Bilirubin 0.5 (0.2-1.3) mg/dL AST 43 H (14-36) IU/L ALT 96 H (9-52) IU/L Alkaline Phosphatase 114 D (38-126) U/L Total Protein 7.7 (6.3-8.2) g/dL Albumin 4.2 (3.5-5.0) g/dL Globulin 3.5 (1.7-4.1) g/dL Albumin/Globulin Ratio 1.2 (1.0-2.8) Imaging Data Chest x-ray: Attestation: I personally reviewed and interpreted this imaging study as follows: ( unremarkable) Radiologist's impression: FINDINGS: Surgical changes and devices: None. Lungs and pleura: Slightly increased pulmonary vascularity. Lungs are otherwise clear. No pleural effusions or pneumothorax. Mediastinum: Mediastinal contours appear normal. Heart size is mildly increased. Bones and chest wall: No suspicious bony lesions. Overlying soft tissues appear unremarkable. IMPRESSION: Mild cardiomegaly and slightly increased pulmonary vascularity suggesting mild pulmonary congestion. No overt pulmonary edema. Dictated by: Dhruv Reeder M.D. on 11/21/2018 at 8:32 Approved by: Dhruv Reeder M.D. on 11/21/2018 at 8:34 ECG Data Attestation: I personally reviewed and interpreted this ECG as follows: ( see below) Interpretation: 12 lead EKG performed in the emergency department showed a normal sinus rhythm with normal rate; NE intervals within normal limits; no ST elevation or depression. Interpretation: No STEMI, as interpreted by ED MD. Discharge Plan Departure Patient Disposition: Home Clinical Impression: Acute chest wall pain, Anxiety Pulmonary emboli Qualifiers: Pulmonary embolism type: unspecified Chronicity: chronic Acute cor pulmonale presence: without acute cor pulmonale Qualified Code(s): I27.82 - Chronic pulmonary embolism Discharge Date/Time: 11/21/18 01:00 Interventions: ED Discharge Assessment Last Done: 11/21/18 01:00 Instructions: DI for Pulmonary Embolism, DI for Anxiety -- Adult, DI for Costochondritis Activity Restrictions/Additional Instructions: Your labs and chest x-ray looked good. Your vital signs are also normal. There is no evidence of significant new clot in your lungs. You are on appropriate medication to help prevent further clots, and at this time, your body needs to get rid of the clots that are there. You should continue to take your Xarelto, and continue to follow up with your doctor. If you develop fever, have further episodes of chest pain, or if you develop shortness of breath, please seek reevaluation. Otherwise, please follow up with your doctor, as planned. Prescriptions: No Action lisinopril 10 MG tablet 10 mg PO QDAY Qty: 15 RF: 0 ketorolac 10 mg tablet 10 mg PO Q6H PRN (Reason: pain) Qty: 14 RF: 0 Referrals: [facility] [Provider Group]
[2018-11-20 22:45] VITALS: BP 147/84; PULSE 71; RESP 18; TEMP 36.6; O2SAT 97
[2018-11-20 22:48] VITALS: BP 126/67; PULSE 74; RESP 22; O2SAT 99
[2018-11-20 23:30] VITALS: BP 134/69; PULSE 77; RESP 20; O2SAT 99
[2018-11-21] VITALS: BP 135/79; PULSE 78; RESP 25; O2SAT 96
[2018-11-21 00:30] VITALS: BP 132/81; PULSE 77; RESP 17; O2SAT 98
== END 2018-11-21 01:00 | disposition home or self-care (01) ==
PROVIDERS: Emergency Provider Emergency Medicine
DX: R07.89 Other chest pain (principal); F41.9 Anxiety disorder, unspecified; I27.82 Chronic pulmonary embolism
CPT/HCPCS: 36591; 71045; 80053; 85025; 85610; 93005; 93041; 96361; 96374; 96375; 99283; 99285; J1885; J2060

== ENCOUNTER 2018-12-22 00:03 | Emergency (ER) | payer SELFPAY ==
[2018-12-22 00:06] VITALS: BP 119/84; PULSE 75; RESP 19; TEMP 36.6; O2SAT 100; BMI 42.4
--- NOTE | 2018-12-22 00:06 | DI.RAD.S_ITS ---
PROCEDURE: XR CHEST 1V INDICATIONS: Chest pain TECHNIQUE: One view of the chest was acquired. COMPARISON: [facility], CR, XR CHEST 1V, 11/20/2018, 22:09. FINDINGS: Surgical changes and devices: None. Lungs and pleura: Lungs are clear. No pleural effusions or pneumothorax. Mediastinum: Mediastinal contours appear normal. Heart size is normal. Bones and chest wall: No suspicious bony lesions. Overlying soft tissues appear unremarkable. IMPRESSION: No acute cardiopulmonary disease process. Dictated by: Eula Live MD, PhD on 12/22/2018 at 8:23 Approved by: Eula Live MD, PhD on 12/22/2018 at 8:23
[2018-12-22 00:32] VITALS: BP 122/74; PULSE 84; RESP 19; O2SAT 99
--- NOTE | 2018-12-22 00:36 | ED_ITS ---
HPI - Chest Pain General Chief Complaint: Chest Pain Stated Complaint: chest pain Time Seen by Provider: 12/22/18 00:06 Source: patient and family Mode of arrival: ambulatory Limitations: language barrier History of Present Illness HPI narrative: Patient is a 53-year-old female. She is Kyrgyz-speaking only but does understand some Swedish. Translation was provided by her family. I offered the patient the translation phone line however she declined and stated that it was okay for her family to provide the translation. It was reported that prior to coming here to the emergency department she had a fairly sudden onset of epigastric abdominal pain. No problems breathing. Has never had any symptoms like this before. Some nausea but no vomiting. she states that the pain was radiating around to her back. She is currently on anticoagulation for a pulmonary embolism. She stated that this feels different than her prior pulmonary embolism. She has not tried anything for symptoms prior to arrival Related Data Previous Rx's Medication Instructions Recorded lisinopril 10 mg PO QDAY #15 tab 07/26/17 ketorolac 10 mg PO Q6H PRN #14 tab 08/03/18 Allergies Allergy/AdvReac Type Severity Reaction Status Date / Time morphine Allergy Difficulty Verified 12/22/18 02:02 Breathing narcotic Allergy Uncoded 11/20/18 21:52 Review of Systems Constitutional Denies fever(s) and Denies headache(s) ENT Ears, Nose, Mouth, and Throat: Denies headache(s) Cardiovascular Denies chest pain (Her pain is epigastric), Denies palpitations and Denies dyspnea Respiratory Denies dyspnea Gastrointestinal Gastrointestinal: Reports abdominal pain (Epigastric pain), Reports nausea and Denies vomiting Musculoskeletal Reports back pain, Denies myalgias and Denies arthralgias Integumentary/Breasts Denies rash Neurologic Denies behavioral changes and Denies headache(s) Psychiatric Denies behavioral changes Endocrine Denies palpitations Hematologic/Lymphatic Denies easy bleeding and Denies easy bruising [facility]LY [facility] Medical History Acute labyrinthitis (Acute) Right sided sciatica (Acute) Pulmonary embolism (Acute) Anxiety (Inactive) Pulmonary embolism (Inactive) Surgical History No pertinent past surgical history (Acute) Social History Smoking Status: Never smoker Social History Smoking Status: Never smoker Exam Initial Vital Signs Initial Vital Signs: Vital Signs Temperature 97.8 F 12/22/18 00:06 Pulse Rate 75 12/22/18 00:06 Respiratory Rate 19 12/22/18 00:06 Blood Pressure 119/84 12/22/18 00:06 Pulse Oximetry 100 12/22/18 00:06 Const General: cooperative, healthy appearing, No comfortable (Uncomfortable.), well developed and well groomed Orientation: alert, awake and oriented x3 HENMT Head: normal to inspection and normocephalic Resp Effort & Inspection: normal respiratory effort Auscultation: clear to auscultation bilaterally Cardio Rate: regular rate Rhythm: regular rhythm GI Inspection: non-distended Palpation: soft, No firm and tender (Epigastric region.) Back/Spine/Pelvis Back: No CVA tenderness Skin Lesions: no lesions Rashes: no rashes Neuro General: alert and awake Cognition: normal cognition Speech: speech normal Extrem General: normal to inspection, capillary refill normal and No edema Psych Appearance: grossly normal and well kempt Scores GCS [place] coma scale eye opening: Spontaneous [place] coma scale verbal response: Orientated [place] coma scale motor response: Obey commands Rich[place] coma scale total score: 15 HEART Score Heart Score history: Slightly Suspicious Heart Score EKG: Normal Heart Score Age: 45-64 years old Heart Score risk factors: 1-2 risk factors Heart Score troponin: < or = to normal limit Heart Score Total: 2 Course Orders Ordered: ED Orders 12/22/18 00:06 XR chest 1V Stat EKG-12 Lead Stat 12/22/18 00:15 Complete Blood Count AUTO DIFF Stat Comprehensive Metabolic Panel Stat Lipase Stat Partial Thromboplastin Time Stat Prothrombin Time INR Stat Troponin I Stat 12/22/18 00:37 CT angio chest Stat 12/22/18 01:43 US abdomen complete Stat 12/22/18 03:35 Troponin I Stat Discontinued Medications Hydrocodone Bitart/Acetaminophen ([place] 5/325) 1 tab PO NOW ONE Stop: 12/22/18 02:04 Last Admin: 12/22/18 02:55 Dose: Not Given Al Hydrox/Mg Hydrox/Simethicone 20 ml/ Lidocaine HCl 15 ml 0 ml PO NOW ONE Stop: 12/22/18 00:38 Last Admin: 12/22/18 00:52 Dose: 35 ml Morphine Sulfate (Morphine) 4 mg IV NOW ONE Stop: 12/22/18 01:44 Last Admin: 12/22/18 01:53 Dose: Not Given Ondansetron HCl (Zofran) 4 mg IV NOW ONE Stop: 12/22/18 00:58 Last Admin: 12/22/18 00:45 Dose: 4 mg Oxycodone/Acetaminophen (Percocet 5/325) 1 tab PO NOW ONE Stop: 12/22/18 02:09 Last Admin: 12/22/18 02:11 Dose: 1 tab Pantoprazole Sodium (Protonix) 40 mg IV NOW ONE Stop: 12/22/18 01:44 Last Admin: 12/22/18 01:53 Dose: 40 mg Vital Signs - 8 hr 12/22/18 00:06 12/22/18 00:32 Temperature 97.8 F Pulse Rate 75 84 Respiratory Rate 19 19 Blood Pressure 119/84 Blood Pressure [Right Arm] 122/74 Pulse Oximetry 100 99 MDM - Chest Pain Lab Data Attestation: I reviewed the patient's lab results. Result diagrams: 12/22/18 00:15 12/22/18 00:15 Lab Results 12/22/18 12/22/18 12/22/18 Range/Units 00:15 00:15 00:15 WBC 8.8 (4.5-11.0) X10^3/uL RBC 4.32 (4.0-5.2) X10^6/uL Hgb 12.9 (12.0-16.0) g/dL Hct 37.4 (36-46) % MCV 86.5 (80-100) fL MCH 29.8 (26-34) PG MCHC 34.4 (30-36) % RDW 13.3 (11.6-14.8) % Plt Count 238 (150-400) X10^3/uL Neut % (Auto) 55.1 (50-75) % Lymph % (Auto) 35.5 (25-40) % Heard % (Auto) 7.1 (3-14) % Eos % (Auto) 2.1 (2-4) % Baso % (Auto) 0.2 (0-2) % Neut # (Auto) 4900 (9996-2231) /uL Lymph # (Auto) 3100 (2494-0688) /uL Heard # (Auto) 600 (0-900) /uL Eos # (Auto) 200 (0-450) /uL Baso # (Auto) 0 (0-100) /uL PT 11.7 (10.1-12.7) SECONDS INR 1.0 (0.9-1.3) APTT 32 (26.4-36.2) SECONDS Sodium 140 (137-145) mmol/L Potassium 3.9 (3.4-5.1) mmol/L Chloride 105 (98-107) mmol/L Carbon Dioxide 29 (22-32) mmol/L BUN 17 (7-17) mg/dL Creatinine 0.70 (0.52-1.04) mg/dL Estimated GFR > 60.0 (>60) mL/min BUN/Creatinine Ratio 24.3 H (6-22) Glucose 97 (70-100) mg/dL Calcium 9.3 (8.4-10.2) mg/dL Total Bilirubin 0.7 (0.2-1.3) mg/dL AST 69 H (14-36) IU/L ALT 41 (9-52) IU/L Alkaline Phosphatase 106 (38-126) U/L Troponin I < 0.012 (0.01-0.034) ng/mL Total Protein 7.5 (6.3-8.2) g/dL Albumin 4.3 (3.5-5.0) g/dL Globulin 3.2 (1.7-4.1) g/dL Albumin/Globulin Ratio 1.3 (1.0-2.8) Lipase 150 (23-300) U/L 12/22/18 Range/Units 03:35 WBC (4.5-11.0) X10^3/uL RBC (4.0-5.2) X10^6/uL Hgb (12.0-16.0) g/dL Hct (36-46) % MCV (80-100) fL MCH (26-34) PG MCHC (30-36) % RDW (11.6-14.8) % Plt Count (150-400) X10^3/uL Neut % (Auto) (50-75) % Lymph % (Auto) (25-40) % Heard % (Auto) (3-14) % Eos % (Auto) (2-4) % Baso % (Auto) (0-2) % Neut # (Auto) (1150-8421) /uL Lymph # (Auto) (0495-0359) /uL Heard # (Auto) (0-900) /uL Eos # (Auto) (0-450) /uL Baso # (Auto) (0-100) /uL PT (10.1-12.7) SECONDS INR (0.9-1.3) APTT (26.4-36.2) SECONDS Sodium (137-145) mmol/L Potassium (3.4-5.1) mmol/L Chloride (98-107) mmol/L Carbon Dioxide (22-32) mmol/L BUN (7-17) mg/dL Creatinine (0.52-1.04) mg/dL Estimated GFR (>60) mL/min BUN/Creatinine Ratio (6-22) Glucose (70-100) mg/dL Calcium (8.4-10.2) mg/dL Total Bilirubin (0.2-1.3) mg/dL AST (14-36) IU/L ALT (9-52) IU/L Alkaline Phosphatase (38-126) U/L Troponin I < 0.012 (0.01-0.034) ng/mL Total Protein (6.3-8.2) g/dL Albumin (3.5-5.0) g/dL Globulin (1.7-4.1) g/dL Albumin/Globulin Ratio (1.0-2.8) Lipase (23-300) U/L Imaging Data Chest x-ray: Attestation: I personally reviewed and interpreted this imaging study as follows: My impression: No acute changes Normal size heart No pneumonia CT scan - chest: Radiologist's impression: No acute pulmonary embolic disease. No aortic dissection or aneurysm identified. Mild cardiomegaly with left atrial enl argement. 7.9 cm left adrenal myelolipoma. Coli lithiasis versus gallbladder polyp US - abdomen: Radiologist's impression: Cholelithiasis with a positive sonographic Lyons's sign. No gallbladder wall thickening or pericholecystic fluid. Findings are equivocal for acute cholecystitis. Common bile duct dilation up to 1.2 cm. No visualized choledocholithiasis. Diffuse fatty infiltration of the liver. Bilateral hydronephrosis versus parapelvic cyst. ECG Data Attestation: I personally reviewed and interpreted this ECG as follows: Prior ECG tracings: not available for review Interpretation: Sinus rhythm Ventricular rate is 71 Sinus arrhythmia Normal axis Normal QRS Normal QTC No ST T wave changes MDM Narrative Medical decision making narrative: Patient's CT scan shows no signs of dissection or new pulmonary embolism. EKG is unremarkable. Has a heart score of 2. Does have cholelithiasis however no signs of cholecystitis. She did take her home pain medication and afterwards stated that her symptoms have almost resolved. Repeat troponin was negative. I suspect that her symptoms are gallbladder-related however with normal LFTs and no signs of cholecystitis and pain controlled with medications I feel that this can be handled as an outpatient. Discussed return precautions and follow-up instructions with the patient and her family. They are given phone number follow up for the surgery group in the area. They were instructed to return if her symptoms worsen. They all expressed understanding and agreement with plan. Discharge Plan Departure Patient Disposition: Home Clinical Impression: Cholelithiasis Qualifiers: Cholelithiasis location: gallbladder Cholecystitis presence: without cholecystitis Biliary obstruction: without biliary obstruction Qualified Code(s): K80.20 - Calculus of gallbladder without cholecystitis without obstruction Abdominal pain Qualifiers: Abdominal location: epigastric Qualified Code(s): R10.13 - Epigastric pain Instructions: Gallstones (Alternative Therapy), DI for Gallstones Activity Restrictions/Additional Instructions: I recommend you contact the [facility] group at [phone] for follow-up. Contact your primary care provider for follow-up as well. return to the emergency department for any new or worsening symptoms. Continue all of her medications as directed. Prescriptions: No Action lisinopril 10 MG tablet 10 mg PO QDAY Qty: 15 RF: 0 ketorolac 10 mg tablet 10 mg PO Q6H PRN (Reason: pain) Qty: 14 RF: 0
--- NOTE | 2018-12-22 00:37 | DI.CT.S_ITS ---
PROCEDURE: CT ANGIO CHEST INDICATIONS: Chest and back pain concern for TAD. History of PE. TECHNIQUE: After the administration of intravenous contrast, 2 mm thick sections acquired from the pulmonary apices to the posterior costophrenic angles. 3-dimensional maximum intensity projection (MIP) coronal and sagittal reformats were then acquired through the thorax. For radiation dose reduction, the following was used: automated exposure control, adjustment of mA and/or kV according to patient size. COMPARISON: [facility], CT, CT ABDOMEN PELVIS WITH CONTRAST, 12/01/2018, 21:05. [facility], CT, CT KUB, 10/04/2018, 19:10. [facility], CT, CT ABD ADRENAL PROTOCOL, 03/13/2017, 15:27. [facility], CT, CT ANGIO CHEST PE, 01/27/2017, 0:29. [facility], CT, CT ABDOMEN PELVIS W CON, 11/15/2018, 17:14. [facility], CT, CT ANGIO CHEST PE PROTOCOL, 11/15/2018, 17:14. FINDINGS: Image quality: Excellent. Thoracic aorta: No aneurysm, dissection, or significant atherosclerotic plaque. Great vessel origins are widely patent without stenosis or aneurysm. SMA, celiac, and bilateral renal arteries are widely patent. Pulmonary arteries: Pulmonary arteries are normal in size, and demonstrate no intraluminal filling defects to suggest central pulmonary embolism. Lungs and pleura: Lungs are clear. No pleural effusions or pneumothorax. Central and peripheral airways are patent. Mediastinum: Heart size is normal, without pericardial effusion. No mediastinal or hilar adenopathy. Thoracic aorta is normal in caliber and enhancement. Esophagus is normal in caliber, without hiatal hernia. Bones and chest wall: No suspicious bony lesions. Ribs and thoracic spine appear intact throughout. Thyroid gland is unremarkable. No axillary or supraclavicular adenopathy. Abdomen: Again noted is a large predominantly fatty mass in the left upper quadrant in the expected general location of the left adrenal, which is not visualized as a separate structure. This may represent a benign adrenal myeloolipoma versus an indolent liposarcoma. It is slightly increased in size, previously measuring 8.0 x 6.0 cm on prior image 24/6 (coronal reformats) of the CT angiogram of 01/27/17. It currently measures 7.7 x 5.8 cm on coronal reformat image 48/8. On image 113/4 of the 01/27/17 study it measured 8.7 x 5.3 cm. On current image 80/6 it measures 9.0 x 5.9 cm. Again noted are multiple bilateral peripelvic renal cysts. IMPRESSION: 1. Unremarkable thoracic aorta 2. No evidence recurrent pulmonary emboli. 3. Slight growth of predominately fatty left upper quadrant mass. 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 The interval growth was mentioned on the recent prior CT dated 12/01/18. At that point, surgical consultation was recommended. Comment: Preliminary interpretation provided by [facility] Dictated by: Pardeep Contreras M.D. on 12/22/2018 at 8:08 Approved by: Pardeep Contreras M.D. on 12/22/2018 at 8:30
[2018-12-22] MEDS: ONDANSETRON 4 MG/2 ML INJ IV (00:45)
[2018-12-22 00:48] LABS: Prothrombin Time 11.7 SECONDS (10.1-12.7)
[2018-12-22 00:49] LABS: Add Manual Diff / Slide Review NO; Basophils Absolute Auto 0 /uL (0-100); Basophils Percent Auto 0.2 % (0-2); Eosinophils Absolute Auto 200 /uL (0-450); Eosinophils Percent Auto 2.1 % (2-4); Hematocrit 37.4 % (36-46); Hemoglobin 12.9 g/dL (12.0-16.0); Lymphocytes Absolute Auto 3100 /uL (1100-4500); Lymphocytes Percent Auto 35.5 % (25-40); Mean Corpuscular HGB Conc 34.4 % (30-36); Mean Corpuscular Hemoglobin 29.8 PG (26-34); Mean Corpuscular Volume 86.5 fL (80-100); Monocytes Absolute Auto 600 /uL (0-900); Monocytes Percent Auto 7.1 % (3-14); Neutrophils Absolute Auto 4900 /uL (1500-7000); Neutrophils Percent Auto 55.1 % (50-75); Platelet Count 238 X10^3/uL (150-400); Red Blood Cell Count 4.32 X10^6/uL (4.0-5.2); Red Cell Distribution Width 13.3 % (11.6-14.8); White Blood Cell Count 8.8 X10^3/uL (4.5-11.0)
[2018-12-22 00:51] LABS: PTT Partial Thromboplastin Tim 32 SECONDS (26.4-36.2)
[2018-12-22 00:52] LABS: Alanine Aminotransferase 41 IU/L (9-52); Albumin 4.3 g/dL (3.5-5.0); Albumin Globulin Ratio 1.3 (1.0-2.8); Alkaline Phosphatase 106 U/L (38-126); Aspartate Aminotransferase 69 IU/L (14-36); BUN Creatinine Ratio 24.3 (6-22); Bilirubin Total 0.7 mg/dL (0.2-1.3); Blood Urea Nitrogen 17 mg/dL (7-17); Calcium 9.3 mg/dL (8.4-10.2); Carbon Dioxide 29 mmol/L (22-32); Chloride 105 mmol/L (98-107); Estimated Glomerular Filt Rate > 60.0 mL/min (>60); Globulin 3.2 g/dL (1.7-4.1); Glucose 97 mg/dL (70-100); HEMOLYSIS 16 (0-50); Lipase 150 U/L (23-300); Potassium 3.9 mmol/L (3.4-5.1); Sodium 140 mmol/L (137-145); Total Protein 7.5 g/dL (6.3-8.2)
[2018-12-22] MEDS: MAG HYDROX/ALUMINUM/SIMETH SUS 20 ML, LIDOCAINE VISCOUS 2% 15 ML PO (00:52)
[2018-12-22 01:04] LABS: Troponin I < 0.012 ng/mL (0.01-0.034)
--- NOTE | 2018-12-22 01:43 | DI.US.S_ITS ---
PROCEDURE: US ABDOMEN COMPLETE INDICATIONS: RIGHT UPPER QUADRANT PAIN TECHNIQUE: Real-time scanning was performed of the abdominal and retroperitoneal organs, with image documentation. COMPARISON: None. FINDINGS: Liver: Liver is normal in size and homogeneous in echotexture. Liver has a diffusely increased echotexture which typically represents fatty infiltration; however, finding is nonspecific and other etiologies including hepatic cirrhosis can have a similar appearance. Please correlate with clinical and laboratory findings. Gallbladder: Multiple gallstones are noted. 1.7 cm gallstone large in the gallbladder neck. No gallbladder wall thickening. No pericholecystic fluid. Positive sonographic Lyons sign. Common bile duct is dilated to 1.2 cm. Biliary ducts: Intrahepatic bile ducts are non-dilated. Extrahepatic bile duct caliber measures 1.2 mm. Normal is 6-7 mm or less in diameter, or 10 mm or less post-cholecystectomy. Pancreas: Visualized portions of the pancreas are sonographically normal. Tail of pancreas not well-visualized due to bowel gas and cannot be evaluated. Spleen: Spleen is normal in size and homogeneous in echotexture. Kidneys: Kidneys are normal in size and echotexture. Right kidney measures 11.0 cm long; left kidney measures 11.9 cm long. Mild right-sided hydronephrosis and moderate left-sided hydronephrosis noted. No solid masses. Aorta: Visualized aorta is normal in caliber at less than 3 cm. Iliacs: Proximal common iliac arteries are normal in caliber at less than 2.5 cm. IVC: Intrahepatic inferior vena cava is patent. Miscellaneous: No free abdominal fluid. IMPRESSION: 1. Echogenic liver. Finding typically represents fatty infiltration; however, finding is nonspecific and correlation with clinical and laboratory findings is recommended to exclude other etiologies including hepatic cirrhosis. 2. Cholelithiasis including a 1.7 cm stone lodged in the gallbladder neck. Positive sonographic Lyons sign noted and early manifestation of cholecystitis cannot be excluded. 3. Common bile duct dilated to 1.2 cm. Recommend correlation with laboratory data to exclude biliary obstruction. MRCP is recommended for further evaluation if clinically indicated. 4. Mild right-sided hydronephrosis and moderate left-sided hydronephrosis of uncertain etiology. Dictated by: Eula Live MD, PhD on 12/22/2018 at 8:19 Approved by: Eula Live MD, PhD on 12/22/2018 at 8:22
[2018-12-22] MEDS: PANTOPRAZOLE 40 MG VIAL IV (01:53)
[2018-12-22] MEDS: OXYCODONE/ACETAMINOPHEN 5/325 TABLET 1 TAB PO (02:11)
[2018-12-22 04:07] LABS: Troponin I < 0.012 ng/mL (0.01-0.034)
[2018-12-22 04:20] VITALS: BP 97/57; PULSE 71; RESP 16; O2SAT 97
== END 2018-12-22 04:20 | disposition home or self-care (01) ==
PROVIDERS: Emergency Provider Emergency Medicine
DX: K80.20 Calculus of gallbladder without cholecystitis without obstruction (principal); R10.13 Epigastric pain; R07.89 Other chest pain
CPT/HCPCS: 36415; 36591; 71045; 71275; 76700; 80053; 83690; 84484; 85025; 85610; 85730; 93005; 93010; 96374; 96375; 99282; 99285; 99291; 99292; C9113; J2270; J2405; Q9967

== ENCOUNTER 2019-07-30 21:15 | Emergency (ER) | payer SELFPAY ==
--- NOTE | 2019-07-30 21:38 | DI.CT.S_ITS ---
PROCEDURE: CT ANGIO CHEST PE PROTOCOL INDICATIONS: Chest pain, shortness of breath, tachycardia TECHNIQUE: After the administration of intravenous contrast, 2 mm thick sections acquired from the pulmonary apices to the posterior costophrenic angles. 3-dimensional maximum intensity projection (MIP) coronal and sagittal reformats were then acquired through the thorax. For radiation dose reduction, the following was used: automated exposure control, adjustment of mA and/or kV according to patient size. COMPARISON: [facility], CT, CT ANGIO CHEST, 12/22/2018, 0:49. FINDINGS: Image quality: Excellent. Pulmonary arteries: Pulmonary arteries are normal in size, and demonstrate no intraluminal filling defects to suggest central pulmonary embolism. Lungs and pleura: Scattered subsegmental atelectasis and/or scarring. No focal consolidation. Trace left pleural fluid. No right pleural effusion or pneumothorax. Patchy consolidation in both lung bases Mediastinum: Heart size is normal, without pericardial effusion. No mediastinal or hilar adenopathy. Thoracic aorta is normal in caliber and enhancement. Esophagus is normal in caliber, without hiatal hernia. Bones and chest wall: No suspicious bony lesions. Ribs and thoracic spine appear intact throughout. Thyroid gland unremarkable. No axillary or supraclavicular adenopathy. Abdomen: Previously described predominantly fatty attenuation left adrenal region mass presumably an adrenomyelolipoma (versus liposarcoma) appears much less conspicuous, possibly sequela of prior surgery. IMPRESSION: No evidence of pulmonary embolism. Bibasilar consolidation and scattered atelectasis with small left pleural fluid. Pneumonia and/or aspiration cannot be excluded Soft tissue gas in the left intra-abdominal wall. Recommend clinical correlation to recent surgery Much less conspicuous appearance or surgical absence of the previously described left-sided adrenal myolipoma. Recommend correlation to any surgical history Findings concordant with the preliminary study interpretation provided at the time of the exam. Dictated by: Goyo Flores M.D. on 07/31/2019 at 8:21 Approved by: Goyo Flores M.D. on 07/31/2019 at 8:32
--- NOTE | 2019-07-30 21:39 | DI.US.S_ITS ---
PROCEDURE: US PERIPH VENOUS LOW EXTREM BI INDICATIONS: EVALUATE FOR DEEP VEIN THROMBOSIS TECHNIQUE: Real-time imaging, as well as color and pulse Doppler interrogation, were performed of the deep veins of both legs from the inguinal ligament to the popliteal fossa. COMPARISON: None. FINDINGS: Right: The common femoral, femoral and popliteal veins are normally compressible, and free of intraluminal thrombus. Color and pulse Doppler demonstrate normal phasic intravascular flow. There is normal augmentation response to distal compression maneuver. Left: The common femoral, femoral and popliteal veins are normally compressible, and free of intraluminal thrombus. Color and pulse Doppler demonstrate normal phasic intravascular flow. There is normal augmentation response to distal compression maneuver. IMPRESSION: No evidence of DVT visualized bilateral extremity veins. Dictated by: Carlos Alberto Zaidi M.D. on 07/31/2019 at 8:29 Approved by: Carlos Alberto Zaidi M.D. on 07/31/2019 at 8:30
[2019-07-30 21:42] VITALS: BP 145/72; PULSE 60; RESP 16; TEMP 36.9; O2SAT 99
--- NOTE | 2019-07-30 21:57 | PC.NURSE ---
Pain to bilateral lower legs, tender to touch.
[2019-07-30 22:00] VITALS: BP 147/72; PULSE 62; RESP 17; O2SAT 97
[2019-07-30 22:17] LABS: Add Manual Diff / Slide Review NO; Basophils Absolute Auto 0 /uL (0-100); Basophils Percent Auto 0.5 % (0-2); Eosinophils Absolute Auto 100 /uL (0-450); Eosinophils Percent Auto 1.3 % (2-4); Hematocrit 37.6 % (36-46); Hemoglobin 12.9 g/dL (12.0-16.0); Lymphocytes Absolute Auto 2300 /uL (1100-4500); Lymphocytes Percent Auto 33.1 % (25-40); Mean Corpuscular HGB Conc 34.2 % (30-36); Mean Corpuscular Hemoglobin 30.1 PG (26-34); Mean Corpuscular Volume 88.2 fL (80-100); Monocytes Absolute Auto 300 /uL (0-900); Neutrophils Absolute Auto 4100 /uL (1500-7000); Neutrophils Percent Auto 60.1 % (50-75); Platelet Count 177 X10^3/uL (150-400); Red Blood Cell Count 4.27 X10^6/uL (4.0-5.2); Red Cell Distribution Width 12.9 % (11.6-14.8); White Blood Cell Count 6.9 X10^3/uL (4.5-11.0)
[2019-07-30 22:23] LABS: INR 0.9 (0.9-1.3); Prothrombin Time 10.8 SECONDS (10.1-12.7)
[2019-07-30 22:26] LABS: PTT Partial Thromboplastin Tim 25 SECONDS (26.4-36.2)
[2019-07-30 22:27] LABS: Alanine Aminotransferase 49 IU/L (<35); Albumin 3.7 g/dL (3.5-5.0); Albumin Globulin Ratio 1.2 (1.0-2.8); Alkaline Phosphatase 85 U/L (38-126); Aspartate Aminotransferase 68 IU/L (14-36); Bilirubin Total 0.5 mg/dL (0.2-1.3); Blood Urea Nitrogen 12 mg/dL (7-17); Calcium 8.8 mg/dL (8.4-10.2); Carbon Dioxide 33 mmol/L (22-32); Chloride 101 mmol/L (98-107); Estimated Glomerular Filt Rate > 60.0 mL/min (>60); Glucose 121 mg/dL (70-100); HEMOLYSIS < 15 (0-50); Potassium 3.9 mmol/L (3.4-5.1); Sodium 140 mmol/L (137-145); Total Protein 6.7 g/dL (6.3-8.2)
[2019-07-30 22:39] LABS: Troponin I < 0.012 ng/mL (0.01-0.034)
[2019-07-30 22:40] VITALS: BP 139/96; PULSE 63; RESP 17; O2SAT 97
[2019-07-30 22:40] LABS: B Type Natriuretic Peptide 168 (<100)
--- NOTE | 2019-07-30 22:40 | ED_ITS ---
HPI - Chest Pain General Chief Complaint: Chest Pain Stated Complaint: chest and back pain s/p surgery Time Seen by Provider: 07/30/19 21:21 Source: patient and family Mode of arrival: Wheelchair Limitations: language barrier History of Present Illness HPI narrative: 54-year-old female who is Romansh-speaking only. Does understand [place]an. Is here with family at bedside who provided translation. I offered translation services to the family and the patient however they declined peer patient is here for evaluation of swelling in her lower extremities and also chest pain and back pain and shortness of breath and also headache. Earlier this year patient was diagnosed with a pulmonary embolism after she developed a clot which sounds like it was after a knee surgery. She was on anticoagulation for what appeared to be approximately 6 months but then was stopped. She then had a cholecystectomy earlier this year as well and had Lovenox around that time. Did not develop any issues. Two days ago she underwent a laparoscopic umbilical hernia repair. She states that the surgery went well but over the pas t day or so she has developed shortness of breath and swelling in her legs and back pain and she is concerned about another clot. Related Data Previous Rx's Medication Instructions Recorded lisinopril 10 mg PO QDAY #15 tab 07/26/17 ketorolac 10 mg PO Q6H PRN #14 tab 08/03/18 Allergies Allergy/AdvReac Type Severity Reaction Status Date / Time morphine Allergy Difficulty Verified 12/22/18 02:02 Breathing narcotic Allergy Uncoded 11/20/18 21:52 Review of Systems Constitutional Constitutional: Denies fever(s) and Reports headache(s) ENT Ears, Nose, Mouth, and Throat: Reports headache(s) Cardiovascular Cardiovascular: Reports chest pain, Reports dyspnea and Reports dyspnea on exertion Respiratory Respiratory: Denies cough, Reports dyspnea and Reports dyspnea on exertion Gastrointestinal Gastrointestinal: Denies abdominal pain, Denies nausea and Denies vomiting Comments: Small bowel movement earlier today Musculoskeletal Musculoskeletal: Denies myalgias and Denies arthralgias Integumentary/Breasts Skin/Breast: Denies lesions and Denies rash Neurologic Neurologic: Denies behavioral changes and Reports headache(s) Psychiatric Psychiatric: Denies behavioral changes Hematologic/Lymphatic Hematologic/Lymphatic: Denies easy bleeding and Denies easy bruising Patient History Medical History Acute labyrinthitis (Acute) Anxiety (Inactive) Pulmonary embolism (Inactive) Pulmonary embolism (Acute) Right sided sciatica (Acute) Surgical History No pertinent past surgical history (Acute) Social History Smoking Status: Never smoker alcohol intake frequency: 0-2 drinks per day Substance Use Type: does not use Exam Initial Vital Signs Initial Vital Signs: Vital Signs Temperature 98.5 F 07/30/19 21:42 Pulse Rate 60 07/30/19 21:42 Respiratory Rate 16 07/30/19 21:42 Blood Pressure 145/72 H 07/30/19 21:42 Pulse Oximetry 99 07/30/19 21:42 Const General: cooperative, comfortable and well developed Orientation: alert and awake HENMT Head: normal to inspection and normocephalic Resp Effort & Inspection: normal respiratory effort Auscultation: clear to auscultation bilaterally Cardio Rate: regular rate Rhythm: regular rhythm GI Inspection: non-distended Palpation: soft, No firm and No tender Skin Lesions: no lesions Rashes: no rashes Neuro General: alert and awake Cognition: normal cognition Extrem General: normal to inspection, capillary refill normal, calf tenderness and No edema Psych Appearance: grossly normal and well kempt Scores GCS [place] coma scale eye opening: Spontaneous [place] coma scale verbal response: Orientated [place] coma scale motor response: Obey commands [place] coma scale total score: 15 Course Orders Ordered: ED Orders 07/30/19 20:05 B Type Natriuretic Peptide Stat Complete Blood Count AUTO DIFF Stat Comprehensive Metabolic Panel Stat Partial Thromboplastin Time Stat Prothrombin Time INR Stat Troponin I Stat 07/30/19 21:26 EKG-12 Lead Stat 07/30/19 21:38 CT angio chest PE protocol Stat 07/30/19 21:39 US periph venous low extrem bi Stat 07/31/19 00:21 Troponin I Stat Discontinued Medications Sodium Chloride (Normal Saline 0.9%) 1,000 mls @ 1,000 mls/hr IV BOLUS ONE Stop: 07/30/19 22:37 Last Admin: 07/30/19 22:41 Dose: 1,000 mls/hr Documented by: YAEL Oxycodone/Acetaminophen (Percocet 5/325) 1 tab PO NOW ONE Stop: 07/30/19 22:41 Last Admin: 07/30/19 22:46 Dose: 1 tab Documented by: YAEL Vital Signs Vital signs: Vital Signs - 8 hr 07/30/19 21:42 07/30/19 22:00 07/30/19 22:40 Temperature 98.5 F Pulse Rate 60 62 63 Respiratory Rate 16 17 17 Blood Pressure 145/72 H Blood Pressure [Left Arm] 147/72 H 139/96 H Pulse Oximetry 99 97 97 MDM - Chest Pain Medical Records Data Attestation: I reviewed the patient's medical records. Lab Data Attestation: I reviewed the patient's lab results. Result diagrams: 07/30/19 20:05 07/30/19 20:05 Labs: Lab Results 07/30/19 07/30/19 07/30/19 Range/Units 20:05 20:05 20:05 WBC 6.9 (4.5-11.0) X10^3/uL RBC 4.27 (4.0-5.2) X10^6/uL Hgb 12.9 (12.0-16.0) g/dL Hct 37.6 (36-46) % MCV 88.2 (80-100) fL MCH 30.1 (26-34) PG MCHC 34.2 (30-36) % RDW 12.9 (11.6-14.8) % Plt Count 177 (150-400) X10^3/uL Neut % (Auto) 60.1 (50-75) % Lymph % (Auto) 33.1 (25-40) % [place] % (Auto) 5.0 (3-14) % Eos % (Auto) 1.3 L (2-4) % Baso % (Auto) 0.5 (0-2) % Neut # (Auto) 4100 (8266-3572) /uL Lymph # (Auto) 2300 (9759-5309) /uL [place] # (Auto) 300 (0-900) /uL Eos # (Auto) 100 (0-450) /uL Baso # (Auto) 0 (0-100) /uL PT 10.8 (10.1-12.7) SECONDS INR 0.9 (0.9-1.3) APTT 25 L D (26.4-36.2) SECONDS Sodium 140 (137-145) mmol/L Potassium 3.9 (3.4-5.1) mmol/L Chloride 101 (98-107) mmol/L Carbon Dioxide 33 H (22-32) mmol/L BUN 12 (7-17) mg/dL Creatinine 0.60 (0.52-1.04) mg/dL Estimated GFR > 60.0 (>60) mL/min BUN/Creatinine Ratio 20.0 (6-22) Glucose 121 H (70-100) mg/dL Calcium 8.8 (8.4-10.2) mg/dL Total Bilirubin 0.5 (0.2-1.3) mg/dL AST 68 H (14-36) IU/L ALT 49 H (<35) IU/L Alkaline Phosphatase 85 (38-126) U/L Troponin I < 0.012 (0.01-0.034) ng/mL B-Natriuretic Peptide 168 H (<100) Total Protein 6.7 (6.3-8.2) g/dL Albumin 3.7 (3.5-5.0) g/dL Globulin 3.0 (1.7-4.1) g/dL Albumin/Globulin Ratio 1.2 (1.0-2.8) 07/31/19 Range/Units 00:21 WBC (4.5-11.0) X10^3/uL RBC (4.0-5.2) X10^6/uL Hgb (12.0-16.0) g/dL Hct (36-46) % MCV (80-100) fL MCH (26-34) PG MCHC (30-36) % RDW (11.6-14.8) % Plt Count (150-400) X10^3/uL Neut % (Auto) (50-75) % Lymph % (Auto) (25-40) % [place] % (Auto) (3-14) % Eos % (Auto) (2-4) % Baso % (Auto) (0-2) % Neut # (Auto) (0043-4191) /uL Lymph # (Auto) (2534-0149) /uL [place] # (Auto) (0-900) /uL Eos # (Auto) (0-450) /uL Baso # (Auto) (0-100) /uL PT (10.1-12.7) SECONDS INR (0.9-1.3) APTT (26.4-36.2) SECONDS Sodium (137-145) mmol/L Potassium (3.4-5.1) mmol/L Chloride (98-107) mmol/L Carbon Dioxide (22-32) mmol/L BUN (7-17) mg/dL Creatinine (0.52-1.04) mg/dL Estimated GFR (>60) mL/min BUN/Creatinine Ratio (6-22) Glucose (70-100) mg/dL Calcium (8.4-10.2) mg/dL Total Bilirubin (0.2-1.3) mg/dL AST (14-36) IU/L ALT (<35) IU/L Alkaline Phosphatase (38-126) U/L Troponin I < 0.012 (0.01-0.034) ng/mL B-Natriuretic Peptide (<100) Total Protein (6.3-8.2) g/dL Albumin (3.5-5.0) g/dL Globulin (1.7-4.1) g/dL Albumin/Globulin Ratio (1.0-2.8) Imaging Data CT scan - chest: Radiologist's impression: No evidence of pulmonary embolism Small left pleural effusion. Bilateral airspace disease is noted Small amount of gas noted within the left anterior abdominal wall. This can be a normal finding the patient had recent surgery. Venous US: Radiologist's impression: No evidence of DVT in the bilateral lower extremities ECG Data Attestation: I personally reviewed and interpreted this ECG as follows: Prior ECG tracings: not available for review Interpretation: Sinus rhythm Ventricular rate 82 Left axis deviation Normal QRS Normal QTC No ST T wave changes MDM Narrative Medical decision making narrative: Patient's exam is benign. The surgical incisions on her abdomen look well without any signs of infection. CT scan of the chest shows no signs of pulmonary embolism. Ultrasounds of the lower extremity showed no signs of DVT. No indication for anticoagulation. No indication for antibiotics. She is having some minor abdominal pain. This very well could be associated with her surgery 2 days ago. She also reports a small bowel movement earlier today but otherwise is also having symptoms of some constipation. She could potentially have a ileus however is not vomiting. Does not have an distended abdomen. We did discuss a liquid diet. We discussed return precautions. Family and patient expressed understanding and agreement plan. Discharge Plan Departure Patient Disposition: Home Clinical Impression: Dyspnea Qualifiers: Dyspnea type: unspecified Qualified Code(s): R06.00 - Dyspnea, unspecified Chest pain Qualifiers: Chest pain type: unspecified Qualified Code(s): R07.9 - Chest pain, unspecified Instructions: DI for Atypical Chest Pain Activity Restrictions/Additional Instructions: Continue all of your medications and your postoperative instructions given to you by the surgeon. Tomorrow contact your primary provider for a follow-up. Return to the emergency department for any new or worsening symptoms. I also recommend a bland liquid diet. Prescriptions: No Action lisinopril 10 MG tablet 10 mg PO QDAY Qty: 15 RF: 0 ketorolac 10 mg tablet 10 mg PO Q6H PRN (Reason: pain) Qty: 14 RF: 0
[2019-07-30] MEDS: SODIUM CHLORIDE 0.9% 1,000 ML 1000 ML IV (22:41)
[2019-07-30] MEDS: OXYCODONE/ACETAMINOPHEN 5/325 TABLET 1 TAB PO (22:46)
--- NOTE | 2019-07-30 22:46 | PC.NURSE ---
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 Patient has her own Vistaril. Ok to take her own medication per Dr. Baez. patient took her own 25mg Vistaril at this time.
[2019-07-31 00:30] VITALS: BP 137/94; PULSE 62; RESP 15; O2SAT 94
[2019-07-31 00:53] LABS: Troponin I < 0.012 ng/mL (0.01-0.034)
[2019-07-31 01:30] VITALS: BP 139/95; PULSE 60; RESP 17; O2SAT 96
[2019-07-31] MEDS: OXYCODONE/APAP 5/325 PREPACK 1 BOTTLE MISC (01:37)
== END 2019-07-31 01:37 | disposition home or self-care (01) ==
PROVIDERS: Emergency Provider Emergency Medicine
DX: R06.00 Dyspnea, unspecified (principal); R07.9 Chest pain, unspecified
CPT/HCPCS: 36415; 71275; 80053; 83880; 84484; 85025; 85610; 85730; 93005; 93970; 96360; 96361; 99283; 99285

== ENCOUNTER 2019-12-06 17:51 | Emergency (ER) | payer SELFPAY ==
[2019-12-06 18:07] VITALS: BP 137/79; PULSE 73; RESP 18; TEMP 35.8; O2SAT 98; BMI 45.2
--- NOTE | 2019-12-06 18:24 | DI.RAD.S_ITS ---
PROCEDURE: XR CHEST 1V INDICATIONS: chest pain TECHNIQUE: One view of the chest was acquired. COMPARISON: [facility], CR, XR CHEST 1V, 12/22/2018, 0:23. FINDINGS: Surgical changes and devices: None. Lungs and pleura: Lungs are clear. No pleural effusions or pneumothorax. Mediastinum: Mediastinal contours appear normal. Heart size is normal. Bones and chest wall: No suspicious bony lesions. Overlying soft tissues appear unremarkable. IMPRESSION: No acute disease Dictated by: Goyo Flores M.D. on 12/06/2019 at 18:55 Approved by: Goyo Flores M.D. on 12/06/2019 at 18:55
[2019-12-06 18:37] LABS: Add Manual Diff / Slide Review NO; Basophils Absolute Auto 100 /uL (0-100); Basophils Percent Auto 0.5 % (0-2); Eosinophils Absolute Auto 200 /uL (0-450); Eosinophils Percent Auto 1.8 % (2-4); Hematocrit 41.3 % (36-46); Hemoglobin 14.1 g/dL (12.0-16.0); Lymphocytes Absolute Auto 2500 /uL (1100-4500); Lymphocytes Percent Auto 25.7 % (25-40); Mean Corpuscular HGB Conc 34.1 % (30-36); Mean Corpuscular Hemoglobin 30.2 PG (26-34); Mean Corpuscular Volume 88.5 fL (80-100); Monocytes Absolute Auto 600 /uL (0-900); Monocytes Percent Auto 5.8 % (3-14); Neutrophils Absolute Auto 6500 /uL (1500-7000); Neutrophils Percent Auto 66.2 % (50-75); Platelet Count 206 X10^3/uL (150-400); Red Blood Cell Count 4.67 X10^6/uL (4.0-5.2); White Blood Cell Count 9.9 X10^3/uL (4.5-11.0)
--- NOTE | 2019-12-06 18:41 | DI.US.S_ITS ---
PROCEDURE: US PERIPH VENOUS LOW EXTREM LT INDICATIONS: PAIN; HX DVT TECHNIQUE: Real-time imaging, as well as color and pulse Doppler interrogation, were performed of the lower extremity deep veins from the inguinal ligament to the popliteal fossa. COMPARISON: None. FINDINGS: The common femoral, femoral and popliteal veins are normally compressible, and free of intraluminal thrombus. Color and pulse Doppler demonstrate normal phasic intraluminal flow. There is normal augmentation response to distal compression maneuver. IMPRESSION: No evidence of deep venous thrombosis. Dictated by: Goyo Flores M.D. on 12/06/2019 at 19:48 Approved by: Goyo Flores M.D. on 12/06/2019 at 19:48
--- NOTE | 2019-12-06 18:43 | ED.SOB ---
HPI - SOB/Dyspnea General Chief Complaint: Shortness of Breath/Dyspnea Stated Complaint: Vomitting/poss blood clot Time Seen by Provider: 12/06/19 18:32 Source: family and service clerk Mode of arrival: Family Vehicle Limitations: language barrier History of Present Illness HPI Narrative: 54-year-old female nonsmoker with history of HTN and a post operative PE presents with her daughter and the chief complaint of LLE pain, swelling in the absence of injury. She was in her normal state of health yesterday and today awoke with this pain and notes a bruise and her left calf. She states this feels very similar to a prior episode of what sounds like a postoperative DVT. Additionally she complains of sharp and stabbing retrosternal chest pain that radiates to her back and is worse with inspiration. She denies any cough or significant shortness of breath. She denies any syncope, recent travel or exposure to persons under suspicion for COVID-19. She is no longer on anticoagulants but had a few left over and took 1 prior to her arrival as she suspects another clot. She denies any cardiac equivalent such as exertional fatigue, worsening of pain, nausea, vomiting, unexplained diaphoresis. MD Complaint: chest pain Onset (ago): hour(s) Severity: moderate Consistency/Duration: constant Relieving factors: rest Exacerbating factors: inspiration Known history of: PE Treatment prior to arrival: other Related Data Home oxygen amount: none Previous Rx's Medication Instructions Recorded lisinopril 10 mg PO QDAY #15 tab 07/26/17 ketorolac 10 mg PO Q6H PRN #14 tab 08/03/18 Allergies Allergy/AdvReac Type Severity Reaction Status Date / Time morphine Allergy Difficulty Verified 12/06/19 18:17 Breathing narcotic Allergy Uncoded 12/06/19 18:17 Review of Systems Constitutional Constitutional: Denies chills, Denies fatigue, Denies fever(s), Denies frequent falls, Denies lethargy and Denies weakness Eyes Eyes: Denies change in vision, Denies eye discharge, Denies irritation and Denies loss of vision ENT Ears, Nose, Mouth, and Throat: Denies change in voice, Denies dizziness, Denies neck pain, Denies sore throat and Denies throat swelling Cardiovascular Cardiovascular: Reports chest pain, Denies irregular heart rhythm, Denies lightheadedness, Denies palpitations, Denies dyspnea, Denies dyspnea on exertion and Denies orthopnea Respiratory Respiratory: Denies cough, Denies dyspnea, Denies dyspnea on exertion and Denies wheezing Gastrointestinal Gastrointestinal: Denies abdominal pain, Denies change in bowel habits, Denies diarrhea, Denies nausea and Denies vomiting Genitourinary Genitourinary: Denies hematuria, Denies flank pain, Denies urinary incontinence and Denies urinary urgency Musculoskeletal Musculoskeletal: Denies back pain, Denies muscle weakness, Denies neck pain, Denies numbness and Denies tingling Comments: LLE Pain Integumentary/Breasts Skin/Breast: Denies pruritus, Denies erythema, Denies rash, Reports unusual bruising and Denies wounds Neurologic Neurologic: Denies behavioral changes, Denies confusion, Denies dizziness, Denies frequent falls, Denies loss of vision, Denies numbness, Denies tingling and Denies weakness Psychiatric Psychiatric: Denies anxiety, Denies behavioral changes, Denies confusion, Denies depression, Denies homicidal ideation and Denies suicidal ideation Endocrine Endocrine: Denies fatigue, Denies flushing and Denies palpitations Hematologic/Lymphatic Hematologic/Lymphatic: Denies easy bruising Allergic/Immunologic Allergic/Immunologic: Denies urticaria, Denies throat swelling and Denies wheezing Patient History Medical History Acute labyrinthitis (Acute) Anxiety (Inactive) Pulmonary embolism (Inactive) Pulmonary embolism (Acute) Right sided sciatica (Acute) Surgical History No pertinent past surgical history (Acute) Social History Smoking Status: Never smoker Smoking Status: Never smoker alcohol intake frequency: 0-2 drinks per day Substance Use Type: does not use Exam Narrative Exam Narrative: GENERAL: [54] year old patient appears stated age. Well-nourished, well-developed patient, in mild distress. HEAD: Atraumatic. Normocephalic. EYES: Pupils equal round and reactive. Extraocular motions intact. No scleral icterus. No injection or drainage. ENT: Nose without bleeding, purulent drainage. Throat without erythema, tonsillar hypertrophy or exudate. Airway patent. NECK: Trachea midline. Non tender CARDIOVASCULAR: Regular rate and rhythm without murmurs, gallops, or rubs. RESPIRATORY: Clear to auscultation. Breath sounds equal bilaterally. No wheezes, rales, or rhonchi. GASTROINTESTINAL: Abdomen soft, non-tender, nondistended. EXTREMITIES: Pain and swelling to LLE with visual ecchymosis of superior calf. Pain to palpation of Left medial thigh, palpable abnormality BACK: Nontender without deformity or crepitance. No flank tenderness. NEURO: AOx3. SKIN: No rash or erythema of visible areas Initial Vital Signs Initial Vital Signs: Vital Signs Temperature 96.5 F L 12/06/19 18:07 Pulse Rate 73 12/06/19 18:07 Respiratory Rate 18 12/06/19 18:07 Blood Pressure 137/79 12/06/19 18:07 Pulse Oximetry 98 12/06/19 18:07 Course Orders Ordered: ED Orders 12/06/19 18:24 XR chest 1V Stat EKG-12 Lead Stat 12/06/19 18:27 Complete Blood Count AUTO DIFF Stat Comprehensive Metabolic Panel Stat Lipase Stat Partial Thromboplastin Time Stat Prothrombin Time INR Stat Troponin & CK Cardiac Panel Stat 12/06/19 18:41 US periph venous low extrem lt Stat 12/06/19 19:05 CT angio chest PE protocol Stat Vital Signs Vital signs: Vital Signs - 8 hr 12/06/19 18:07 Temperature 96.5 F L Pulse Rate 73 Respiratory Rate 18 Blood Pressure 137/79 Pulse Oximetry 98 MDM - SOB/Dyspnea Lab Data Result diagrams: 12/06/19 18:27 12/06/19 18:27 Labs: Lab Results 12/06/19 12/06/19 12/06/19 Range/Units 18:27 18:27 18:27 WBC 9.9 (4.5-11.0) X10^3/uL RBC 4.67 (4.0-5.2) X10^6/uL Hgb 14.1 (12.0-16.0) g/dL Hct 41.3 (36-46) % MCV 88.5 (80-100) fL MCH 30.2 (26-34) PG MCHC 34.1 (30-36) % RDW 13.0 (11.6-14.8) % Plt Count 206 (150-400) X10^3/uL Neut % (Auto) 66.2 (50-75) % Lymph % (Auto) 25.7 (25-40) % [place] % (Auto) 5.8 (3-14) % Eos % (Auto) 1.8 L (2-4) % Baso % (Auto) 0.5 (0-2) % Neut # (Auto) 6500 (1690-6042) /uL Lymph # (Auto) 2500 (1254-3573) /uL [place] # (Auto) 600 (0-900) /uL Eos # (Auto) 200 (0-450) /uL Baso # (Auto) 100 (0-100) /uL PT 12.3 (10.1-12.7) SECONDS INR 1.1 (0.9-1.3) APTT 31 D (26.4-36.2) SECONDS Sodium 139 (137-145) mmol/L Potassium 4.1 (3.4-5.1) mmol/L Chloride 107 (98-107) mmol/L Carbon Dioxide 23 (22-32) mmol/L BUN 15 (7-17) mg/dL Creatinine 0.75 (0.52-1.04) mg/dL Estimated GFR > 60.0 (>60) mL/min BUN/Creatinine Ratio 20.0 (6-22) Glucose 128 H (70-100) mg/dL Calcium 9.4 (8.4-10.2) mg/dL Total Bilirubin 0.6 (0.2-1.3) mg/dL AST 31 (14-36) IU/L ALT 22 (<35) IU/L Alkaline Phosphatase 85 (38-126) U/L Total Creatine Kinase 106 (30-135) U/L CK-MB (CK-2) 0.51 (<2.37) ng/mL CK-MB (CK-2) Rel Index 0.5 L (1.5-5.0) % Troponin I < 0.012 (0.01-0.034) ng/mL Total Protein 8.1 (6.3-8.2) g/dL Albumin 4.5 (3.5-5.0) g/dL Globulin 3.6 (1.7-4.1) g/dL Albumin/Globulin Ratio 1.3 (1.0-2.8) Lipase 122 (23-300) U/L Discharge Plan Departure Patient Disposition: Home Clinical Impression: Atypical chest pain Discharge Date/Time: 12/06/19 20:59 Instructions: DI for Atypical Chest Pain Activity Restrictions/Additional Instructions: *You have been diagnosed with [ atypical chest pain ] *What to do: *Take medications as directed *Follow up with your primary care provider in 2-3 days, call for an appointment. Let them know you were seen in the Emergency Department and that we ask that you be seen in follow up *Return to ER if you should have any new, worsening or concerning symptoms Prescriptions: No Action lisinopril 10 MG tablet 10 mg PO QDAY Qty: 15 RF: 0 ketorolac 10 mg tablet 10 mg PO Q6H PRN (Reason: pain) Qty: 14 RF: 0
--- NOTE | 2019-12-06 18:47 | PC.NURSE ---
Reports pain in left calf with no injury or trauma. Some bruising noted. Patient reports some SOB but denies cough. Denies fevers or recent illness
[2019-12-06 18:48] LABS: INR 1.1 (0.9-1.3); Prothrombin Time 12.3 SECONDS (10.1-12.7)
[2019-12-06 18:51] LABS: PTT Partial Thromboplastin Tim 31 SECONDS (26.4-36.2)
[2019-12-06 18:53] LABS: HEMOLYSIS 21 (0-50); Potassium 4.1 mmol/L (3.4-5.1)
[2019-12-06 19:04] LABS: Troponin I < 0.012 ng/mL (0.01-0.034)
--- NOTE | 2019-12-06 19:05 | DI.CT.S_ITS ---
PROCEDURE: CT ANGIO CHEST PE PROTOCOL INDICATIONS: CP, SOB, radiation to back hx PE TECHNIQUE: After the administration of intravenous contrast, 2 mm thick sections acquired from the pulmonary apices to the posterior costophrenic angles. 3-dimensional maximum intensity projection (MIP) coronal and sagittal reformats were then acquired through the thorax. For radiation dose reduction, the following was used: automated exposure control, adjustment of mA and/or kV according to patient size. COMPARISON: [facility], CT, CT ANGIO CHEST PE PROTOCOL, 07/30/2019, 22:52. FINDINGS: Image quality: Excellent. Pulmonary arteries: Pulmonary arteries are normal in size, and demonstrate no intraluminal filling defects to suggest central pulmonary embolism. Lungs and pleura: Scattered subsegmental atelectasis and/or scarring. No focal consolidation. . No pleural effusions or pneumothorax. Central and peripheral airways are patent. Mediastinum: Heart size is enlarged, without pericardial effusion. No mediastinal or hilar adenopathy. Thoracic aorta is normal in caliber and enhancement. Esophagus is normal in caliber, without hiatal hernia. Bones and chest wall: No suspicious bony lesions. Ribs and thoracic spine appear intact throughout. Thyroid gland negative. No axillary or supraclavicular adenopathy. Abdomen: Visualized upper abdominal solid organs appear normal in the early arterial phase of enhancement. IMPRESSION: No pulmonary embolism identified No evidence of aortic dissection Scattered subsegmental atelectasis and/or scarring. No focal consolidation. Cardiomegaly. Dictated by: Goyo Flores M.D. on 12/06/2019 at 20:15 Approved by: Goyo Flores M.D. on 12/06/2019 at 20:20
[2019-12-06 19:15] LABS: Alkaline Phosphatase 85 U/L (38-126); Aspartate Aminotransferase 31 IU/L (14-36); Bilirubin Total 0.6 mg/dL (0.2-1.3); Blood Urea Nitrogen 15 mg/dL (7-17); Calcium 9.4 mg/dL (8.4-10.2); Carbon Dioxide 23 mmol/L (22-32); Chloride 107 mmol/L (98-107); Creatine Kinase 106 U/L (30-135); Estimated Glomerular Filt Rate > 60.0 mL/min (>60); Glucose 128 mg/dL (70-100); Sodium 139 mmol/L (137-145)
[2019-12-06 19:16] LABS: Albumin 4.5 g/dL (3.5-5.0); Albumin Globulin Ratio 1.3 (1.0-2.8); Globulin 3.6 g/dL (1.7-4.1); Lipase 122 U/L (23-300); Total Protein 8.1 g/dL (6.3-8.2)
[2019-12-06 19:17] LABS: Alanine Aminotransferase 22 IU/L (<35)
[2019-12-06 19:35] LABS: CKMB % Relative Index 0.5 % (1.5-5.0); Creatine Kinase MB 0.51 ng/mL (<2.37)
[2019-12-06 20:30] VITALS: BP 114/61; PULSE 64; O2SAT 98
== END 2019-12-06 20:59 | disposition home or self-care (01) ==
PROVIDERS: Emergency Provider Emergency Medicine
DX: R07.89 Other chest pain (principal); S80.12XA Contusion of left lower leg, initial encounter; M79.89 Other specified soft tissue disorders
CPT/HCPCS: 36415; 71045; 71275; 80053; 82550; 82553; 83690; 84484; 85025; 85610; 85730; 93005; 93971; 99284; Q9967

== ENCOUNTER 2020-01-15 17:27 | Emergency (ER) | payer SELFPAY ==
[2020-01-15 17:42] VITALS: BP 103/65; PULSE 84; RESP 17; TEMP 36.7; O2SAT 98; BMI 40.6
[2020-01-15 17:51] VITALS: BMI 40.6
--- NOTE | 2020-01-15 18:28 | ED_ITS ---
HPI - Female Genitourinary General Chief complaint: Urogenital-Female Stated complaint: LEFT SIDE PAIN Time Seen by Provider: 01/15/20 18:08 Source: patient and family Mode of arrival: Family Vehicle Limitations: language barrier History of Present Illness HPI Narrative: 54F non smoker with history of HTN, post operative PE presents with family and chief complaint of LLQ pain. The pain has been present for approximately 3 days and seems to be becoming more intense. It is persistent and the patient denies any provocation, palliation or radiation. She has nausea but denies any vomiting. She has had no trouble with urination or bowel movements. She denies any history of the same. Patient denies any injury. She denies any runny nose, sore throat or fever or chills. Related Data Previous Rx's Medication Instructions Recorded lisinopril 10 mg PO QDAY #15 tab 07/26/17 ketorolac 10 mg PO Q6H PRN #14 tab 08/03/18 hydrocodone-acetaminophen 1 tab PO Q4-6H PRN #10 tab 01/15/20 hydroxyzine HCl 25 mg PO BID PRN #10 tab 01/15/20 ondansetron 4 mg PO TID-QID PRN #10 tab 01/15/20 Allergies Allergy/AdvReac Type Severity Reaction Status Date / Time morphine Allergy Difficulty Verified 01/15/20 17:49 Breathing narcotic Allergy Uncoded 01/15/20 17:49 Review of Systems Constitutional Constitutional: Denies chills, Denies fatigue, Denies fever(s), Denies frequent falls, Denies lethargy and Denies weakness Eyes Eyes: Denies change in vision, Denies eye discharge, Denies irritation and Denies loss of vision ENT Ears, Nose, Mouth, and Throat: Denies change in voice, Denies dizziness, Denies neck pain, Denies sore throat and Denies throat swelling Cardiovascular Cardiovascular: Denies chest pain, Denies irregular heart rhythm, Denies lightheadedness, Denies palpitations, Denies dyspnea, Denies dyspnea on exertion and Denies orthopnea Respiratory Respiratory: Denies cough, Denies dyspnea, Denies dyspnea on exertion and Denies wheezing Gastrointestinal Gastrointestinal: Reports abdominal pain, Denies change in bowel habits, Denies diarrhea, Reports nausea and Denies vomiting Genitourinary Genitourinary: Denies hematuria, Denies flank pain, Denies urinary incontinence and Denies urinary urgency Musculoskeletal Musculoskeletal: Denies back pain, Denies muscle weakness, Denies neck pain, Denies numbness and Denies tingling Integumentary/Breasts Skin/Breast: Denies pruritus, Denies erythema, Denies rash and Denies wounds Neurologic Neurologic: Denies behavioral changes, Denies confusion, Denies dizziness, Denies frequent falls, Denies loss of vision, Denies numbness, Denies tingling and Denies weakness Psychiatric Psychiatric: Denies anxiety, Denies behavioral changes, Denies confusion, Denies depression, Denies homicidal ideation and Denies suicidal ideation Endocrine Endocrine: Denies fatigue, Denies flushing and Denies palpitations Hematologic/Lymphatic Hematologic/Lymphatic: Denies easy bruising Allergic/Immunologic Allergic/Immunologic: Denies urticaria, Denies throat swelling and Denies wheezing Patient History Medical History Acute labyrinthitis (Acute) Anxiety (Inactive) Pulmonary embolism (Inactive) Pulmonary embolism (Acute) Right sided sciatica (Acute) Surgical History No pertinent past surgical history (Acute) alcohol intake frequency: 0-2 drinks per day Substance Use Type: does not use Exam Narrative Exam Narrative: GENERAL: [54] year old patient appears stated age. Well- nourished, well-developed patient, in mild distress. HEAD: Atraumatic. Normocephalic. EYES: Pupils equal round and reactive. Extraocular motions intact. No scleral icterus. No injection or drainage. ENT: Nose without bleeding, purulent drainage. Throat without erythema, tonsillar hypertrophy or exudate. Airway patent. NECK: Trachea midline. Non tender CARDIOVASCULAR: Regular rate and rhythm without murmurs, gallops, or rubs. RESPIRATORY: Clear to auscultation. Breath sounds equal bilaterally. No wheezes, rales, or rhonchi. GASTROINTESTINAL: Abdomen soft, tender in left lower quadrant, nondistended. No peritoneal signs EXTREMITIES: No edema or joint tenderness. BACK: Nontender without deformity or crepitance. No flank tenderness. NEURO: AOx3. SKIN: No rash or erythema of visible areas Initial Vital Signs Initial Vital Signs: Vital Signs Temperature 98.0 F 01/15/20 17:42 Pulse Rate 84 01/15/20 17:42 Respiratory Rate 17 01/15/20 17:42 Blood Pressure 103/65 01/15/20 17:42 Pulse Oximetry 98 01/15/20 17:42 Course Course Course Narrative: use of terrazzo supervisor during history and physical exam. Multiple etiologies for patient's symptoms considered including: [colitis vs. diverticulitis vs. kidney stone vs. other] Patient's symptoms improved or duration of stay with above-stated therapies. Findings and discharge diagnosis discussed with patient/family followed by verbalization of understanding Return precautions discussed with patient/family whom verbalize understanding. Orders Ordered: ED Orders 01/15/20 19:10 Complete Blood Count AUTO DIFF Stat Comprehensive Metabolic Panel Stat Lactate (Lactic Acid) Stat Lipase Stat Urine Microscopic Stat 01/15/20 20:15 CT abdomen pelvis w con Stat Discontinued Medications Hydrocodone Bitart/Acetaminophen (Vicodin 5/325 Prepack) 1 bottle MISC SEEINSTR ONE Stop: 01/15/20 22:07 Last Admin: 01/15/20 22:12 Dose: 1 bottle Documented by: TABATHA Sodium Chloride (Normal Saline 0.9%) 1,000 mls @ 1,000 mls/hr IV BOLUS ONE Stop: 01/15/20 19:56 Last Infusion: 01/15/20 21:09 Dose: 0 mls/hr Documented by: Admin: 01/15/20 19:42 Dose: 1,000 mls/hr Documented by: TABATHA Ketorolac Tromethamine (Toradol) 15 mg IV NOW ONE Stop: 01/15/20 18:58 Last Admin: 01/15/20 19:43 Dose: 15 mg Documented by: TABATHA Ondansetron HCl (Zofran) 4 mg IV NOW ONE Stop: 01/15/20 20:40 Last Admin: 01/15/20 20:46 Dose: 4 mg Documented by: NORMA Ondansetron HCl (Zofran Odt Prepack) 1 bottle MISC SEEINSTR ONE Stop: 01/15/20 22:07 Last Admin: 01/15/20 22:12 Dose: 1 bottle Documented by: TABATHA Vital Signs Vital signs: Vital Signs - 8 hr 01/15/20 19:00 01/15/20 20:00 01/15/20 21:43 Pulse Rate 89 78 64 Respiratory Rate 22 22 20 Blood Pressure [Right Arm] 116/71 119/74 127/71 Pulse Oximetry 99 98 100 MDM - Female Genitourinary Lab Data Result diagrams: 01/15/20 19:10 01/15/20 19:10 Labs: Lab Results 01/15/20 01/15/20 01/15/20 Range/Units 19:10 19:10 19:10 WBC 8.8 (4.5-11.0) X10^3/uL RBC 4.24 (4.0-5.2) X10^6/uL Hgb 12.9 (12.0-16.0) g/dL Hct 37.5 (36-46) % MCV 88.4 (80-100) fL MCH 30.5 (26-34) PG MCHC 34.5 (30-36) % RDW 13.1 (11.6-14.8) % Plt Count 232 (150-400) X10^3/uL Neut % (Auto) 62.8 (50-75) % Lymph % (Auto) 29.8 (25-40) % [place] % (Auto) 5.2 (3-14) % Eos % (Auto) 1.4 L (2-4) % Baso % (Auto) 0.8 (0-2) % Neut # (Auto) 5500 (0838-5097) /uL Lymph # (Auto) 2600 (8438-2393) /uL [place] # (Auto) 500 (0-900) /uL Eos # (Auto) 100 (0-450) /uL Baso # (Auto) 100 (0-100) /uL Sodium 138 (137-145) mmol/L Potassium 4.9 (3.4-5.1) mmol/L Chloride 105 (98-107) mmol/L Carbon Dioxide 23 (22-32) mmol/L BUN 19 H (7-17) mg/dL Creatinine 0.54 (0.52-1.04) mg/dL Estimated GFR > 60.0 (>60) mL/min BUN/Creatinine Ratio 35.2 H (6-22) Glucose 113 H (70-100) mg/dL Lactate 1.5 (0.7-2.1) mmol/L Calcium 9.6 (8.4-10.2) mg/dL Total Bilirubin 0.6 (0.2-1.3) mg/dL AST 36 (14-36) IU/L ALT 20 (<35) IU/L Alkaline Phosphatase 77 (38-126) U/L Total Protein 7.9 (6.3-8.2) g/dL Albumin 4.4 (3.5-5.0) g/dL Globulin 3.5 (1.7-4.1) g/dL Albumin/Globulin Ratio 1.3 (1.0-2.8) Lipase 126 (23-300) U/L Urine RBC (0-5/HPF) Urine WBC (0-5/HPF) Ur Squamous Epith Cells (0-5/HPF) Uric Acid Crystals (None) Urine Bacteria (None) Ur Culture Indicated? 01/15/20 Range/Units 19:10 WBC (4.5-11.0) X10^3/uL RBC (4.0-5.2) X10^6/uL Hgb (12.0-16.0) g/dL Hct (36-46) % MCV (80-100) fL MCH (26-34) PG MCHC (30-36) % RDW (11.6-14.8) % Plt Count (150-400) X10^3/uL Neut % (Auto) (50-75) % Lymph % (Auto) (25-40) % [place] % (Auto) (3-14) % Eos % (Auto) (2-4) % Baso % (Auto) (0-2) % Neut # (Auto) (2438-0790) /uL Lymph # (Auto) (1851-2226) /uL [place] # (Auto) (0-900) /uL Eos # (Auto) (0-450) /uL Baso # (Auto) (0-100) /uL Sodium (137-145) mmol/L Potassium (3.4-5.1) mmol/L Chloride (98-107) mmol/L Carbon Dioxide (22-32) mmol/L BUN (7-17) mg/dL Creatinine (0.52-1.04) mg/dL Estimated GFR (>60) mL/min BUN/Creatinine Ratio (6-22) Glucose (70-100) mg/dL Lactate (0.7-2.1) mmol/L Calcium (8.4-10.2) mg/dL Total Bilirubin (0.2-1.3) mg/dL AST (14-36) IU/L ALT (<35) IU/L Alkaline Phosphatase (38-126) U/L Total Protein (6.3-8.2) g/dL Albumin (3.5-5.0) g/dL Globulin (1.7-4.1) g/dL Albumin/Globulin Ratio (1.0-2.8) Lipase (23-300) U/L Urine RBC None seen (0-5/HPF) Urine WBC None seen (0-5/HPF) Ur Squamous Epith Cells 0-1 /hpf (0-5/HPF) Uric Acid Crystals Few H (None) Urine Bacteria None seen (None) Ur Culture Indicated? Cult not indicated Urine Dip Bedside Urine Glucose Negative Bedside Urine Bilirubin - Negative Bedside Urine Ketone - Negative Urine Specific [place] 1.030 Bedside Urine Occult Blood + Bedside Urine pH 5.5 Bedside Urine Protein - Negative Bedside Urine Urobilinogen - Negative Bedside Urine Nitrite - Negative Bedside Urine Leukocytes - Negative Esterase Imaging Data CT scan - abdomen/pelvis: Radiologist's Impression: Lilia Rehmans 54 F 1965 [place] [address] CT Scan Report Signed Patient: Lilia RehmanR#: [id number] : 1965Acct:[id number] Age/Sex: 54 / FDate of Service: 01/15/20 Loc: ED Accession Number: [id number] Procedure: CT abdomen pelvis w con Ordering Provider: Peter Stein D.O. PROCEDURE: CT ABDOMEN PELVIS W CON INDICATIONS: severe LLQ pain TECHNIQUE: After the administration of intravenous contrast, 5 mm thick sections acquired from the diaphragm to the symphysis. 5 mm coronal and sagittal reformats were acquired. For radiation dose reduction, the following was used: automated exposure control, adjustment of mA and/or kV according to patient size. COMPARISON: [facility], CT, CT ABDOMEN PELVIS WITH CONTRAST, 12/01/2018, 21:05. [facility], CT, CT ABDOMEN PELVIS W CON, 11/15/2018, 17:14. FINDINGS: Image quality: Excellent. ABDOMEN: Lung bases: Lung bases are clear. Heart size is normal. Solid organs: Liver is enlarged with steatosis. Gallbladder has been removed. There is unchanged prominence of the common bile duct suspected to be related to post cholecystectomy sequela. Pancreas enhances normally. Spleen is normal in size and enhancement. No adrenal nodules. Kidneys demonstrate normal size and e nhancement, without hydronephrosis. Bilateral peripelvic cysts are noted. Peritoneum and bowel: Bowel loops demonstrate normal wall thickness and caliber. No free fluid or air. Appendix is unremarkable. Colonic diverticula are present without visualized inflammatory change. Nodes and vessels: No retroperitoneal or mesenteric adenopathy by size criteria. Aorta and inferior vena cava are normal in size. Miscellaneous: No ventral hernias. PELVIS: Genitourinary: Bladder wall thickness is normal. 16 mm low attenuation focus is present within the right adnexa unchanged and likely cyst. Miscellaneous: No inguinal hernias or adenopathy. Bones: No suspicious bony lesions. No vertebral body compression fractures. IMPRESSION: 1. Diverticulosis. No inflammatory change. 2. Hepatomegaly with steatosis. 3. Cholecystectomy. Dictated by: Arianna Hankins M.D. on 01/15/2020 at 20:47 Approved by: Arianna Hankins M.D. on 01/15/2020 at 20:53 Discharge Plan Departure Patient Disposition: Home Clinical Impression: Abdominal pain Qualifiers: Abdominal location: left lower quadrant Qualified Code(s): R10.32 - Left lower quadrant pain Discharge Date/Time: 01/15/20 22:38 Instructions: DI for Abdominal Pain-Adult Activity Restrictions/Additional Instructions: 1. Drink plenty of fluids with frequent small sips. 2. For the next 24 hours a clear liquid diet is advised. After that please employ a brat diet which would include bananas, rice, apples, toast. 3. Please take medications as directed. 4. Please follow-up with your doctor in the next 1-2 days. Call the office for an appointment. 5. Please return to the emergency Department for any worsening or persistent symptoms, such as increasing pain or fever. Prescriptions: New hydrocodone-acetaminophen 5-325 mg tablet 1 tab PO Q4-6H PRN (Reason: pain) Qty: 10 RF: 0 ondansetron 4 mg tablet,disintegrating 4 mg PO TID-QID PRN (Reason: nausea and vomiting) Qty: 10 RF: 0 hydroxyzine HCl 25 mg tablet 25 mg PO BID PRN (Reason: itching) Qty: 10 RF: 0 No Action lisinopril 10 MG tablet 10 mg PO QDAY Qty: 15 RF: 0 ketorolac 10 mg tablet 10 mg PO Q6H PRN (Reason: pain) Qty: 14 RF: 0 Referrals: [facility] [Outside] Laura Keenan MD [Physician] -
[2020-01-15 19:00] VITALS: BP 116/71; PULSE 89; RESP 22; O2SAT 99
[2020-01-15 19:25] LABS: Add Manual Diff / Slide Review NO; Basophils Absolute Auto 100 /uL (0-100); Basophils Percent Auto 0.8 % (0-2); Eosinophils Absolute Auto 100 /uL (0-450); Eosinophils Percent Auto 1.4 % (2-4); Hematocrit 37.5 % (36-46); Hemoglobin 12.9 g/dL (12.0-16.0); Lymphocytes Absolute Auto 2600 /uL (1100-4500); Lymphocytes Percent Auto 29.8 % (25-40); Mean Corpuscular HGB Conc 34.5 % (30-36); Mean Corpuscular Hemoglobin 30.5 PG (26-34); Mean Corpuscular Volume 88.4 fL (80-100); Monocytes Absolute Auto 500 /uL (0-900); Monocytes Percent Auto 5.2 % (3-14); Neutrophils Absolute Auto 5500 /uL (1500-7000); Neutrophils Percent Auto 62.8 % (50-75); Platelet Count 232 X10^3/uL (150-400); Red Blood Cell Count 4.24 X10^6/uL (4.0-5.2); Red Cell Distribution Width 13.1 % (11.6-14.8); White Blood Cell Count 8.8 X10^3/uL (4.5-11.0)
[2020-01-15 19:35] LABS: Lactate (Lactic Acid) 1.5 mmol/L (0.7-2.1)
[2020-01-15 19:36] LABS: Alanine Aminotransferase 20 IU/L (<35); Albumin 4.4 g/dL (3.5-5.0); Albumin Globulin Ratio 1.3 (1.0-2.8); Alkaline Phosphatase 77 U/L (38-126); Aspartate Aminotransferase 36 IU/L (14-36); BUN Creatinine Ratio 35.2 (6-22); Bilirubin Total 0.6 mg/dL (0.2-1.3); Blood Urea Nitrogen 19 mg/dL (7-17); Calcium 9.6 mg/dL (8.4-10.2); Carbon Dioxide 23 mmol/L (22-32); Chloride 105 mmol/L (98-107); Estimated Glomerular Filt Rate > 60.0 mL/min (>60); Globulin 3.5 g/dL (1.7-4.1); Glucose 113 mg/dL (70-100); Lipase 126 U/L (23-300); Sodium 138 mmol/L (137-145); Total Protein 7.9 g/dL (6.3-8.2)
[2020-01-15 19:38] LABS: HEMOLYSIS 84 (0-50); Potassium 4.9 mmol/L (3.4-5.1)
[2020-01-15] MEDS: SODIUM CHLORIDE 0.9% 1,000 ML 1000 ML IV (19:42)
[2020-01-15] MEDS: KETOROLAC 60 MG/2 ML VIAL 15 MG IV (19:43)
[2020-01-15 19:45] LABS: Bacteria Urine None Seen; RBC Urine None Seen (0-5/HPF); WBC Urine None Seen (0-5/HPF)
[2020-01-15 19:53] LABS: Culture Indicated Urine Cult Not Indicated; Squamous Epithelial Cell Urine 0-1 /HPF (0-5/HPF); Uric Acid Crystals Urine Few
[2020-01-15 20:00] VITALS: BP 119/74; PULSE 78; RESP 22; O2SAT 98
--- NOTE | 2020-01-15 20:15 | DI.CT.S_ITS ---
PROCEDURE: CT ABDOMEN PELVIS W CON INDICATIONS: severe LLQ pain TECHNIQUE: After the administration of intravenous contrast, 5 mm thick sections acquired from the diaphragm to the symphysis. 5 mm coronal and sagittal reformats were acquired. For radiation dose reduction, the following was used: automated exposure control, adjustment of mA and/or kV according to patient size. COMPARISON: [facility], CT, CT ABDOMEN PELVIS WITH CONTRAST, 12/01/2018, 21:05. [facility], CT, CT ABDOMEN PELVIS W CON, 11/15/2018, 17:14. FINDINGS: Image quality: Excellent. ABDOMEN: Lung bases: Lung bases are clear. Heart size is normal. Solid organs: Liver is enlarged with steatosis. Gallbladder has been removed. There is unchanged prominence of the common bile duct suspected to be related to post cholecystectomy sequela. Pancreas enhances normally. Spleen is normal in size and enhancement. No adrenal nodules. Kidneys demonstrate normal size and enhancement, without hydronephrosis. Bilateral peripelvic cysts are noted. Peritoneum and bowel: Bowel loops demonstrate normal wall thickness and caliber. No free fluid or air. Appendix is unremarkable. Colonic diverticula are present without visualized inflammatory change. Nodes and vessels: No retroperitoneal or mesenteric adenopathy by size criteria. Aorta and inferior vena cava are normal in size. Miscellaneous: No ventral hernias. PELVIS: Genitourinary: Bladder wall thickness is normal. 16 mm low attenuation focus is present within the right adnexa unchanged and likely cyst. Miscellaneous: No inguinal hernias or adenopathy. Bones: No suspicious bony lesions. No vertebral body compression fractures. IMPRESSION: 1. Diverticulosis. No inflammatory change. 2. Hepatomegaly with steatosis. 3. Cholecystectomy. Dictated by: Arianna Hankins M.D. on 01/15/2020 at 20:47 Approved by: Arianna Hankins M.D. on 01/15/2020 at 20:53
[2020-01-15] MEDS: ONDANSETRON 4 MG/2 ML INJ IV (20:46)
[2020-01-15 21:43] VITALS: BP 127/71; PULSE 64; RESP 20; O2SAT 100
[2020-01-15] MEDS: ONDANSETRON 4 MG ODT PREPACK 1 BOTTLE MISC (22:12)
[2020-01-15] MEDS: HYDROCODONE/ACET 5/325 PREPACK 1 BOTTLE MISC (22:12)
== END 2020-01-15 22:38 | disposition home or self-care (01) ==
PROVIDERS: Emergency Provider Emergency Medicine
DX: R10.32 Left lower quadrant pain (principal)
CPT/HCPCS: 36415; 74177; 80053; 81003; 81015; 83605; 83690; 85025; 96361; 96374; 96375; 99284; J1885; J2405; Q9967

== ENCOUNTER 2023-11-05 19:08 | Emergency (ER) | payer OTHER, SELFPAY ==
[2023-11-05 19:19] VITALS: BP 116/60; PULSE 73; RESP 18; TEMP 36.2; O2SAT 98; BMI 38.3
--- NOTE | 2023-11-05 21:11 | DI.RAD.S_ITS ---
PROCEDURE: XR LUMBAR SPINE 2-3V INDICATIONS: L sided lower back pain TECHNIQUE: 3 views of the lumbar spine were acquired. COMPARISON: None. FINDINGS: Bones: 5 [id number] vertebrae are present. There is normal bony alignment. There is multilevel facet arthropathy, worse at L4-5 and L5-S1. Mild multilevel disc height loss with degenerative endplate changes and spurring is present. No vertebral body compression fractures. No suspicious bony lesions. Soft tissues: Overlying bowel gas pattern is normal. No suspicious soft tissue calcifications. Right upper quadrant surgical clips. IMPRESSION: Degenerative changes of the lumbar spine. No acute osseous abnormalities. Dictated by: Tay Farfan M.D. on 11/05/2023 at 22:01 Approved by: Tay Farfan M.D. on 11/05/2023 at 22:02
--- NOTE | 2023-11-05 21:11 | ED.BACK ---
HPI - Back Pain/Injury General Chief Complaint: Back Pain/Injury Stated Complaint: horrible back pain Time Seen by Provider: 11/05/23 21:03 Source: patient Mode of arrival: Ambulatory Limitations: language barrier History of Present Illness HPI Narrative: Patient is a 58-year-old female. Is Kiny[place]-speaking only however family members are at bedside providing translation services. They were okay with continuing with this. Patient is here for evaluation of left-sided lower back discomfort that is radiating down her leg. No urinary symptoms. No fevers. No specific trauma. It is not tender to palpation but is worse with movement. Has not tried anything for the symptoms prior to arrival. Has had back pain in the past but not this bad. Related Data Previous Rx's Medication Instructions Recorded lisinopril 10 mg tablet 10 mg PO QDAY #15 tabs 07/26/17 ketorolac 10 mg tablet 10 mg PO Q6H PRN pain #14 tabs 08/03/18 hydrocodone 5 mg-acetaminophen 325 1 tab PO Q4-6H PRN pain #10 tabs 01/15/20 mg tablet hydroxyzine HCl 25 mg tablet 25 mg PO BID PRN itching #10 tabs 01/15/20 ondansetron 4 mg disintegrating 4 mg PO TID-QID PRN nausea and 01/15/20 tablet vomiting #10 tabs cyclobenzaprine 10 mg tablet 10 mg PO TID PRN muscle spasm #12 11/05/23 tabs prednisone 20 mg tablet 20 mg PO DAILY 7 days #7 tabs 11/05/23 tramadol 50 mg tablet 50 mg PO Q6H PRN pain #14 tabs 11/05/23 Allergies Allergy/AdvReac Type Severity Reaction Status Date / Time morphine Allergy Difficulty Verified 11/05/23 19:19 Breathing narcotic Allergy Uncoded 01/15/20 17:49 Review of Systems Constitutional Constitutional: Reports system reviewed and no additional complaints, except as documented Cardiovascular Cardiovascular: Reports system reviewed and no additional complaints, except as documented Respiratory Respiratory: Reports system reviewed and no additional complaints, except as documented Musculoskeletal Musculoskeletal: Reports system reviewed and no additional complaints, except as documented Integumentary/Breasts Skin/Breast: Reports system reviewed and no additional complaints, except as documented Neurologic Neurologic: Reports system reviewed and no additional complaints, except as documented Patient History Medical History Pulmonary embolism Anxiety Pulmonary embolism Right sided sciatica Acute labyrinthitis Surgical History No pertinent past surgical history Social History Smoking Status: Never smoker Smoking Status: Never smoker alcohol intake frequency: 0-2 drinks per day Substance Use Type: does not use Exam Initial Vital Signs Initial Vital Signs: Vital Signs Temperature 97.1 F L 11/05/23 19:19 Pulse Rate 73 11/05/23 19:19 Respiratory Rate 18 11/05/23 19:19 Blood Pressure 116/60 11/05/23 19:19 Pulse Oximetry 98 11/05/23 19:19 Oxygen Delivery Method Room Air 11/05/23 19:19 Const General: cooperative, comfortable and No ill appearing HENMT Head: normal to inspection and normocephalic Resp Effort & Inspection: normal respiratory effort Auscultation: clear to auscultation bilaterally Cardio Rate: regular rate Rhythm: regular rhythm Back/Spine/Pelvis Thoracic/Lumbar Spine: No thoracic spinal tenderness and No lumbar spinal tenderness Sacroiliac Joints: nontender Skin General: no rashes or lesions noted Neuro General: patient alert, patient awake and moves all extremities Course Orders Ordered: ED Orders 11/05/23 21:11 XR lumbar spine 2-3V Stat Discontinued Medications Hydromorphone HCl (Hydromorphone 1 Mg Inj) 1 mg IM NOW ONE Stop: 11/05/23 21:12 Last Admin: 11/05/23 21:23 Dose: 1 mg Documented By: KASSANDRA Ketorolac Tromethamine (Ketorolac 30 Mg/Ml Vial) 30 mg IM NOW ONE Stop: 11/05/23 21:12 Last Admin: 11/05/23 21:23 Dose: 30 mg Documented By: GC Ondansetron HCl (Ondansetron 4 Mg Odt Prepack) 1 bottle MISC DIRECTED ONE Stop: 11/05/23 23:04 Vital Signs Vital signs: Vital Signs - 8 hr 11/05/23 22:16 11/05/23 23:10 Temperature 98.5 F Pulse Rate 72 Respiratory Rate 20 Blood Pressure 121/72 Pulse Oximetry 100 Oxygen Delivery Method Room Air MDM - Back Pain/Injury Lab Data Attestation: I reviewed the patient's lab results. Labs: Urine Dip Bedside Urine Glucose Negative Bedside Urine Bilirubin - Negative Bedside Urine Ketone - Negative Urine Specific [place] 1.030 Bedside Urine Occult Blood - Negative Bedside Urine pH 6.0 Bedside Urine Protein - Negative Bedside Urine Urobilinogen - Negative Bedside Urine Nitrite - Negative Bedside Urine Leukocytes - Negative Esterase Imaging Data lumbar spine x-ray: Radiologist's Impression: PROCEDURE: XR LUMBAR SPINE 2-3V INDICATIONS: L sided lower back pain TECHNIQUE: 3 views of the lumbar spine were acquired. COMPARISON: None. FINDINGS: Bones: 5 [id number] vertebrae are present. There is normal bony alignment. There is multilevel facet arthropathy, worse at L4-5 and L5-S1. Mild multilevel disc height loss with degenerative endplate changes and spurring is present. No vertebral body compression fractures. No suspicious bony lesions. Soft tissues: Overlying bowel gas pattern is normal. No suspicious soft tissue calcifications. Right upper quadrant surgical clips. IMPRESSION: Degenerative changes of the lumbar spine. No acute osseous abnormalities. MDM Narrative Medical decision making narrative: Patient reports a great improvement of symptoms after medications here in the ER. X-rays show no acute fractures. Low suspicion for cauda equina, abscess, hematoma. No indication for advanced imaging today. She did develop some nausea after the pain medication. Discussed with her daughter and the patient regarding treatment at home with symptoms. Will discharge home with return precautions. Everyone expressed understanding and agreement with plan. Discharge Plan Departure Patient Disposition: Home Clinical Impression: Lower back pain Instructions: DI for Low Back Pain Activity Restrictions/Additional Instructions: I do recommend that you take the medications as directed. I also recommend that you contact her primary doctor for a follow-up. Return to the emergency department for new symptoms. Prescriptions: New prednisone 20 mg tablet 20 mg PO DAILY 7 Days Qty: 7 0RF cyclobenzaprine 10 mg tablet 10 mg PO TID PRN (Reason: muscle spasm) Qty: 12 0RF tramadol 50 mg tablet 50 mg PO Q6H PRN (Reason: pain) Qty: 14 0RF No Action lisinopril 10 MG tablet 10 mg PO QDAY Qty: 15 0RF ketorolac 10 mg tablet 10 mg PO Q6H PRN (Reason: pain) Qty: 14 0RF hydrocodone-acetaminophen 5-325 mg tablet 1 tab PO Q4-6H PRN (Reason: pain) Qty: 10 0RF ondansetron 4 mg tablet,disintegrating 4 mg PO TID-QID PRN (Reason: nausea and vomiting) Qty: 10 0RF hydroxyzine HCl 25 mg tablet 25 mg PO BID PRN (Reason: itching) Qty: 10 0RF Stand Alone Forms: Patient Portal/API
[2023-11-05] MEDS: KETOROLAC 30 MG/ML VIAL IM (21:23)
[2023-11-05] MEDS: HYDROMORPHONE 1 MG INJ IM (21:23)
[2023-11-05 22:16] VITALS: BP 121/72; PULSE 72; RESP 20; O2SAT 100
[2023-11-05 23:10] VITALS: TEMP 36.9
== END 2023-11-05 23:10 | disposition home or self-care (01) ==
PROVIDERS: Emergency Provider Emergency Medicine
DX: M54.50 Low back pain, unspecified (principal); Z79.899 Other long term (current) drug therapy
CPT/HCPCS: 72100; 81003; 96372; 99283; J1170; J1885